=== PATIENT | female | born 1950 | race Caucasian/White ===

== ENCOUNTER 2016-11-09 06:21 | Inpatient (IN) | payer OTHER ==
[2016-10-18 14:25] VITALS: BMI 32.0
--- NOTE | 2016-10-18 15:13 | PAT Medication Instructions ---
Service Date Oct 18, 2016. Current Home Medication List Amlodipine (Norvasc), 10 MG PO QAM Aspirin (Aspirin Ec), 81 MG PO QAM Atorvastatin (Lipitor), 20 MG PO QPM Cyclobenzaprine Hcl (Flexeril), 5 MG PO TID PRN for PRN Etodolac (Etodolac), 1,000 TAB PO QAM Hydrochlorothiazide (Hctz), 25 MG PO QAM Labetalol Hcl (Normodyne), 100 MG PO BID Pantoprazole (Protonix), 40 MG PO BID Polyethylene Glycol 3350 (Miralax), 17 GM PO QAM Sertraline (Zoloft), 100 MG PO QAM Triamcinolone Acet (Triamcinolone Acetonide), 1 APPLN TOP PRN Wheat Dextrin (Benefiber), 1 DOSE PO QAM [Fiber Gummies], 1 TAB PO DAILY Medication Instructions For Your Scheduled Surgery - Check with surgeon for instructions: Etodolac (Etodolac), 1,000 TAB PO QAM - Hold the following medications 24 hours prior to surgery: Triamcinolone Acet (Triamcinolone Acetonide), 1 APPLN TOP PRN - Hold the following medications the morning of surgery: [Fiber Gummies], 1 TAB PO DAILY Wheat Dextrin (Benefiber), 1 DOSE PO QAM Hydrochlorothiazide (Hctz), 25 MG PO QAM Cyclobenzaprine Hcl (Flexeril), 5 MG PO TID PRN for PRN Polyethylene Glycol 3350 (Miralax), 17 GM PO QAM - Take the following medications the morning of surgery with a sip of water: Aspirin (Aspirin Ec), 81 MG PO QAM Labetalol Hcl (Normodyne), 100 MG PO BID Sertraline (Zoloft), 100 MG PO QAM Pantoprazole (Protonix), 40 MG PO BID Amlodipine (Norvasc), 10 MG PO QAM - Take the following medications as scheduled the night before surgery: Labetalol Hcl (Normodyne), 100 MG PO BID Atorvastatin (Lipitor), 20 MG PO QPM Cyclobenzaprine Hcl (Flexeril), 5 MG PO TID PRN for PRN Pantoprazole (Protonix), 40 MG PO BID If you have any questions please call us at [phone] (Senia Sommer PA-C) or [phone] or [phone]
[2016-10-18 15:39] LABS: BASO % 0.3 %; BASO ABS # 0.02 K/uL (0-0.2); COMPLETE YES; EOS % 1.8 %; IG% 0.1 %; LYMPH % 22.8 %; LYMPH ABS # 1.62 K/uL (1.2-3.4); MEAN CELL VOLUME 87.6 fL (80-100); MEAN CORPUSCULAR HEMOGLOBIN 29.9 pg (25-34); MEAN CORPUSCULAR HGB CONC 34.2 g/dl (32-36); MEAN PLATELET VOLUME 10.7 fL (7.4-10.4); MONO % 10.3 %; NEUT % 64.7 %; PLATELET COUNT 270 K/uL (130-400); RED BLOOD COUNT 4.11 M/uL (4.2-5.4); WHITE BLOOD COUNT 7.11 K/uL (4.8-10.8)
[2016-10-18 15:53] LABS: INR 0.9 (0.9-1.1); PARTIAL THROMBOPLASTIN RATIO 1.1
[2016-10-18 15:54] LABS: URINE APPEARANCE CLEAR (CLEAR); URINE COLOR DK YELLOW; URINE NITRITE NEG (NEG); URINE SPECIFIC GRAVITY 1.023 (1.000-1.030); UROBILINOGEN NEG (NEG); ZZUR CULT IF INDIC CLEAN CATCH NO
[2016-10-18 15:56] LABS: URINE BILIRUBIN 3+ (NEG)
[2016-10-18 15:57] LABS: MANUAL MICROSCOPIC REQUIRED? NO; REVIEW REQ? NO
[2016-10-18 16:05] LABS: BUN/CREATININE RATIO 25.1 (10-20); CALCIUM 8.8 mg/dl (8.5-10.1); CREATININE 1.3 mg/dl (0.60-1.20); POTASSIUM 3.1 mmol/L (3.5-5.1)
[2016-10-19 06:23] LABS: ESTIMATED AVERAGE GLUCOSE 111 mg/dl; HA1C FLAG Normal (Normal)
--- NOTE | 2016-11-08 21:33 | HISTORY & PHYSICAL EXAMINATION ---
DATE OF ADMISSION: 11/09/2016 CHIEF COMPLAINT: Chronic left knee pain. HISTORY OF PRESENT ILLNESS: This is a 66-year-old female patient of Dr. Marshall'lorena complaining of chronic left knee pain, longstanding, now progressively getting worse. The patient has been diagnosed with end-stage osteoarthritis. The patient has failed conservative treatment including intraarticular injections, anti-inflammatories and the use of a cane as needed. She has increased pain with weightbearing activities and her pain does interfere with her activities of daily living. PAST MEDICAL HISTORY: Hypertension, anxiety, diet-controlled diabetes mellitus, osteoarthritis, acid reflux, hiatal hernia and obesity. SOCIAL HISTORY: Nonsmoker and nondrinker. FAMILY HISTORY: Noncontributory. REVIEW OF SYSTEMS: The patient complains of chronic left knee pain. Otherwise denies any shortness of breath, chest pain, nausea, vomiting or any other joint complaints. PAST SURGICAL HISTORY: Tonsils and adenoids, paraesophageal hernia, incisional hernia, hernia incarceration, cataract surgery, multiple times Lainez's esophagus and mitral valve prolapse. MEDICATIONS: Atorvastatin 20 mg daily, Flexeril 5 mg t.i.d. p.r.n., hydrochlorothiazide 25 mg daily, aspirin 81 mg daily, Klonopin 0.5 mg three times a day p.r.n. anxiety, Normodyne 100 mg one tablet b.i.d., Lodine 500 mg two tablets daily, Benefiber daily, MiraLax daily, Zoloft 100 mg daily, triamcinolone acetonide 0.1 mg cream apply twice daily for rashes around ears and back topically, Norvasc 10 mg daily, Protonix 40 mg b.i.d., Topamax and fiber gummies daily. ALLERGIES: INCLUDE BENZOIC ACID, CIPROFLOXACIN AND FLAGYL, IODINATED AGENTS, LATEX, LISINOPRIL, LOSARTAN, POTASSIUM, STERI-STRIPS AND WELCHOL. PHYSICAL EXAMINATION: GENERAL: Well-developed, well-nourished 66-year-old female in no acute distress. She is alert, oriented x3 and pleasant. HEENT: Normocephalic, atraumatic. Extraocular motions are intact. Pupils are equal and reactive to light. HEART: Regular rate and rhythm, no murmurs appreciated. LUNGS: Clear. ABDOMEN: Soft, nontender, bowel sounds present. EXTREMITIES: Left knee reveals a varus deformity with medial joint line tenderness. She has limited range of motion of 0-130 degrees. She is stable. She has crepitation with passive range of motion. She has 5/5 strength. NEUROLOGIC: Neurovascularly, she is intact in her left lower extremity. DIAGNOSES: Left knee end-stage osteoarthritis, hypertension, anxiety, diabetes mellitus diet-controlled, osteoarthritis, acid reflux, paraesophageal hernia and obesity. She also has mitral valve prolapse and Lainez's esophagus. PLAN: The patient was advised of her diagnoses. Indications, risks, benefits, and postop course have all been reviewed. The patient wishes to proceed with a left total knee arthroplasty. Necessary consent forms, preoperative testing and clearances will be obtained. FABIOLA
[~2016-11-09] VITALS: Ht 162.6 cm; Wt 83.7 kg
[2016-11-09] VITALS (9 sets, daily range): BP systolic 105–126; BP diastolic 64–77; PULSE 64–82; TEMP 36.4–36.9; O2SAT 91–96; Ht 162.6 cm; Wt 83.7 kg
[~2016-11-09 06:21] MED LIST: ACETAMINOPHEN 500 MG TAB PO SCH; AMLO-114 PO; ASPI81TA28 PO; ATOR-22 PO; CEFAZOLIN 2000 MG/60 ML D5W 60 ML IV SCH; CYCL5TAB PO; CeleBREX 200 MG CAP PO SCH; DEXAMETHASONE 4 MG TAB PO SCH; ETOD500T95 PO; FAMOTIDINE 20 MG TAB PO SCH; FIBER GUMMIES PO; GABAPENTIN 300 MG CAP PO SCH; HYDR25TA4 PO; LACTATED RINGER'S 1000ML 1,000 ML IV SCH; LACTATED RINGER'S 1000ML IV SCH; LBT/100 PO; METOCLOPRAMIDE HCL 10 MG TAB PO SCH; PANT40TA PO; POLY335019 PO; ROPIVACAINE 5MG/ML 30 ML 150 MG, BUPIVACAINE/EPINEPHR 0.5% MPF 30 ML, KETOROLAC TROMETH... INFIL SCH; SERT-234 PO; TRMCR515 TOP; WHEAPOW13 PO
[2016-11-09] MEDS: TRANEXAMIC ACID INJ 1,000 MG in SODIUM CHLORIDE 0.9% 100ML 100 ML IV SCH ×2 (06:30→08:21)
[2016-11-09] MEDS ORDERED: MELO7.5T5 PO (06:54)
--- NOTE | 2016-11-09 07:00 | History & Physical Bridge Note ---
H&P Re-Evaluation Bridge Note: I have examined the patient, reviewed the History & Physical and in the interval since the performance of the History & Physical I have noted the following changes of clinical significance: No changes noted
[2016-11-09] MEDS ORDERED: MIDAZOLAM HCL 1 MG/ML 2ML VIAL ONE (07:14)
[2016-11-09] MEDS ORDERED: FENTANYL CITRATE INJ 50 MCG/1 ML 2 ML VIAL ONE (07:14)
[2016-11-09] MEDS ORDERED: ORTHO JOINT ANESTHETIC ONE (07:21)
[2016-11-09] MEDS ORDERED: POVIDONE-IODINE OP SOLN 30 ML BTL ONE (07:21)
[2016-11-09] MEDS ORDERED: BACITRACIN 50000 UNIT VIAL ONE (07:21)
[2016-11-09] MEDS ORDERED: BUPIVACAINE 0.25% 30 ML VIAL ONE (07:27)
[2016-11-09] MEDS ORDERED: BUPIVACAINE 0.5 % 5 MG/1 ML PF 10ML VIAL ONE (07:27)
[2016-11-09] MEDS ORDERED: LABETALOL HCL IV 5 MG/ML 20ML IV PRN (08:45)
[2016-11-09] MEDS ORDERED: FENTANYL CITRATE INJ 50 MCG/1 ML 2 ML VIAL IV PRN (08:45)
[2016-11-09] MEDS ORDERED: ATROPINE SULFATE 0.1 MG/ML 5ML SYR IV PRN (08:45)
[2016-11-09] MEDS ORDERED: MEPERIDINE HCL 25 MG/ML CARP IV PRN (08:45)
[2016-11-09] MEDS ORDERED: EpHEDrine SULFATE INJ 50 MG/ML AMP IV PRN (08:45)
[2016-11-09] MEDS ORDERED: HYDROmorphone INJ 1 MG/ML SYR IV PRN (08:45)
[2016-11-09] MEDS ORDERED: ONDANSETRON INJ 2 MG/ML 2 ML VIAL IV PRN ×2 (08:45→10:45)
[2016-11-09] MEDS ORDERED: PROPOFOL IV EMULSION 10 MG/ML 20 ML VIAL IV ONE ×2 (09:36→09:53)
--- NOTE | 2016-11-09 10:06 | [facility] Operative Report ---
Operative Report Operative Date Nov 09, 2016. Pre-Operative Diagnosis Left knee end-stage osteoarthritis Post-Operative Diagnosis same Procedure(s) Performed left total knee replacement Surgeon Dr. Arturo Marshall Brushing Operator Surgeon(s) Del Gutierrez PA-C Estimated Blood Loss 5cc Findings grade 4 medial and medial patellofemoral,varus Specimens A. Left knee bone and tissue Drains 2 hemovac Anesthesia spinal, block, orthomix Complication(s) None Disposition Recovery Room / PACU Indications end stage oa I attest to the content of the Intraoperative Record and any orders documented therein. Any exceptions are noted below.
[2016-11-09] MEDS ORDERED: CYCLOBENZAPRINE HCL 5 MG TAB PO PRN (10:45)
[2016-11-09] MEDS ORDERED: ZOLPIDEM TARTRATE 5 MG TAB PO PRN (10:45)
[2016-11-09] MEDS ORDERED: MAGNESIUM HYDROXIDE SUSP 30 ML UDC PO PRN (10:45)
[2016-11-09] MEDS ORDERED: MoRPHine SULFATE 2 MG/ML CARP IV PRN (10:45)
[2016-11-09] MEDS ORDERED: BISACODYL 10 MG SUPP PR PRN (10:45)
[2016-11-09] MEDS ORDERED: DiphenhydrAMINE HCL 50 MG/ML VIAL IV PRN (10:45)
[2016-11-09] MEDS ORDERED: ALUMINUM/MAGNESIUM/SIMETH (MAALOX MAX) 30 ML UDC PO PRN (10:45)
[2016-11-09] MEDS ORDERED: MoRPHine SULFATE 4 MG/ML 1 ML CARP\\VIAL IV PRN (11:00)
[2016-11-09] MEDS ORDERED: MoRPHine SULFATE 10 MG/ML CARP/VIAL IV PRN (11:00)
--- NOTE | 2016-11-09 11:00 | DIAGNOSTIC IMAGING REPORT ---
TWO VIEWS LEFT KNEE CLINICAL HISTORY: Postoperative examination. FINDINGS: AP and crosstable lateral portable views of the left knee are obtained. A left knee arthroplasty is in near anatomic alignment. There has been undersurface remodeling of the patella. No acute fracture is seen. There are expected postoperative changes around the knee including skin clips, a surgical drain, soft tissue edema, and subcutaneous gas. IMPRESSION: Expected postoperative changes status post left knee arthroplasty. No acute fracture is seen. Electronically signed by: Tin Fortune M.D. 11/09/2016 10:58 AM Dictated Date/Time: 11/09/2016 10:58 AM
--- NOTE | 2016-11-09 11:26 | Anesthesiology Progress Note ---
Anesthesia Post Op Note Date & Time Nov 09, 2016 at 11:26 Vital Signs Pain Intensity: 0 Vital Signs Past 12 Hours Date Time Temp Pulse Resp B/P Pulse Ox O2 Delivery O2 Flow Rate FiO2 11/09/16 11:00 71 14 132/62 92 Nasal Cannula 2 11/09/16 10:50 65 14 129/66 93 Nasal Cannula 2 11/09/16 10:40 66 16 119/63 94 Nasal Cannula 2 11/09/16 10:31 36.3 82 16 128/67 96 Room Air 11/09/16 06:55 36.4 70 18 125/76 Room Air Notes Mental Status: alert / awake / arousable, participated in evaluation Pt Amnestic to Procedure: Yes Nausea / Vomiting: adequately controlled Pain: adequately controlled Airway Patency, RR, SpO2: stable & adequate BP & HR: stable & adequate Hydration State: stable & adequate Anesthetic Complications: no major complications apparent
[2016-11-09] MEDS: D5W AND 1/2NSS + 20MEQ KCL 1,000 ML IV SCH ×2 (13:23→22:37)
[2016-11-09] MEDS: FERROUS GLUCONATE 324 MG TAB PO SCH ×2 (14:08→18:06)
[2016-11-09] MEDS: ACETAMINOPHEN 500 MG TAB PO SCH ×2 (14:09→21:45)
[2016-11-09] MEDS: CEFAZOLIN IV 2,000 MG in DEXTROSE 5% 50ML 50 ML IV SCH (15:37)
[2016-11-09] MEDS: OXYCODONE HCL IR 5 MG TAB (IMMEDIATE RELEASE) PO PRN (17:43)
--- NOTE | 2016-11-09 18:15 | Medical Consult ---
Consultation Date of Consultation: Nov 09, 2016. Attending Physician: Arturo Marshall M.D. Reason for Consultation: med mgmt History of Present Illness This is a 66 y/o female with PMHx of HTN, Dyslipidemia and other problems as outlined below who presents POD 0 s/p L TKA performed by Dr. Marshall. Pt is doing well post-operatively. She denies any pain. Pt denies chest pain, SOB, abd pain, N/V, bowel or bladder issues, LE edema and calf pain. Past Medical/Surgical History Medical Problems: (1) Anxiety Status: Chronic (2) Depression Status: Chronic (3) Dyslipidemia Status: Chronic (4) GERD (gastroesophageal reflux disease) Status: Chronic (5) HTN (hypertension) Status: Chronic Surgical Problems: (1) H/O cataract removal with insertion of prosthetic lens Status: Resolved (2) H/O hernia repair Status: Resolved (3) History of cholecystectomy Status: Resolved (4) History of tonsillectomy and adenoidectomy Status: Resolved Social History Smoking Status: Never Smoker Alcohol Use: none Drug Use: none Marital Status: Housing Status: lives with significant other Allergies Coded Allergies: Adhesives (Verified Allergy, Unknown, RASH WITH STERI STRIPS, 11/09/16) Benzoic Acid (Verified Allergy, Unknown, RASH, 11/09/16) Ciprofloxacin (Verified Allergy, Unknown, NAUSEA AND VOMITING, 11/09/16) Colesevelam (Verified Allergy, Unknown, UNKNOWN, 11/09/16) Iodinated Diagnostic Agents (Verified Allergy, Unknown, NAUSEA VOMITING, ) Latex1 -Allergic Contact Dermititis (Verified Allergy, Unknown, RASH, 11/09) Lisinopril (Verified Allergy, Unknown, DIZZY, 11/09/16) Losartan (Verified Allergy, Unknown, COUGH, 11/09/16) Metronidazole (Verified Allergy, Unknown, NAUSEA VOMITING, 11/09/16) Milk (Verified Allergy, Unknown, DIARRHEA, 11/09/16) Home Medications Active Reported Mobic (Meloxicam) 7.5 Mg Tab 7.5 Mg PO DAILY [Fiber Gummies] 1 Tab PO DAILY Protonix (Pantoprazole Sodium) 40 Mg Tab 40 Mg PO BID Norvasc (Amlodipine Besylate) 10 Mg Tab 10 Mg PO QAM Triamcinolone Acetonide (Triamcinolone Acet) 45 Appln/15 Gm Cr 1 Appln TOP PRN 30 Days Zoloft (Sertraline HCl) 100 Mg Tab 100 Mg PO QAM Miralax (Polyethylene Glycol 3350) 1 Pow Pow 17 Gm PO QAM Benefiber (Wheat Dextrin) 1 Pow Pow 1 Dose PO QAM Normodyne (Labetalol Hcl) 100 Mg Tab 100 Mg PO BID Aspirin Ec (Aspirin) 81 Mg Tab 81 Mg PO QAM Hctz (Hydrochlorothiazide) 25 Mg Tab 25 Mg PO QAM Lipitor (Atorvastatin Calcium) 20 Mg Tab 20 Mg PO QPM Flexeril (Cyclobenzaprine Hcl) 5 Mg Tab 5 Mg PO TID PRN PRN Current Inpatient Medications Current Inpatient Medications Medications (Trade) Dose Ordered Sig/Parish Route Start Time Stop Time Status Last Admin Dose Admin Amlodipine Besylate (Norvasc Tab) 10 mg QAM PO 11/10/16 09:00 12/10/16 08:59 Atorvastatin Calcium (Lipitor Tab) 20 mg QPM PO 11/09/16 21:00 12/09/16 20:59 Cyclobenzaprine HCl (Flexeril Tab) 5 mg TID PRN PO 11/09/16 10:45 12/09/16 10:44 Labetalol HCl (Normodyne Tab) 100 mg BID PO 11/09/16 21:00 12/09/16 20:59 Pantoprazole Sodium (Protonix Tab) 40 mg BID PO 11/09/16 21:00 12/09/16 20:59 Sertraline HCl (Zoloft Tab) 100 mg QAM PO 11/10/16 09:00 12/10/16 08:59 Morphine Sulfate 2 mg 2 mg Q4HWA PRN IV 11/09/16 10:45 11/23/16 10:44 Potassium Chloride/Dextrose/ Sod Cl 1,000 ml @ 100 mls/hr Q10H IV 11/09/16 13:00 11/10/16 10:32 11/09/16 13:23 100 MLS/HR Cefazolin Sodium/ Dextrose (Ancef Iv/D5 50ml) 60 ml @ 100 mls/hr Q8H IV 11/09/16 16:00 11/10/16 00:35 11/09/16 15:37 100 MLS/HR Oxycodone HCl (Roxicodone Immediate Rel Tab) 1 TABLET FOR PAIN RATING... Q4H PRN PO 11/09/16 10:45 11/23/16 10:44 11/09/16 17:43 5 MG Oxycodone HCl (Oxycontin Tab) 10 mg Q12 PO 11/09/16 21:00 11/23/16 20:59 Acetaminophen (Tylenol Tab) 1,000 mg Q8H PO 11/09/16 14:00 12/09/16 10:44 11/09/16 14:09 1,000 MG Magnesium Hydroxide (Milk Of Magnesia Susp) 30 ml Q6H PRN PO 11/09/16 10:45 12/09/16 10:44 Bisacodyl (Dulcolax Supp) 10 mg DAILY PRN AR 11/09/16 10:45 12/09/16 10:44 Senna (Senokot Tab) 17.2 mg HS PO 11/09/16 21:00 12/09/16 20:59 Docusate Sodium (coLACE CAP) 100 mg BID PO 11/09/16 21:00 12/09/16 20:59 Diphenhydramine HCl (Benadryl Inj) 25 mg Q8H PRN IV 11/09/16 10:45 12/09/16 10:44 Al Hydrox/Mg Hydrox/Simethicone (Maalox Max Susp) 15 ml Q4H PRN PO 11/09/16 10:45 12/09/16 10:44 Zolpidem Tartrate (Ambien Tab) 5 mg HSZ PRN PO 11/09/16 10:45 12/09/16 10:44 Multivitamins (Multivitamin Tab) 1 tab QAM PO 11/10/16 09:00 12/10/16 08:59 Ondansetron HCl (Zofran Inj) 4 mg Q6H PRN IV 11/09/16 10:45 12/09/16 10:44 Ferrous Gluconate (Ferrous Gluconate Tab) 324 mg TIDM PO 11/09/16 12:30 12/09/16 12:29 11/09/16 14:08 324 MG Aspirin (Ecotrin Tab) 81 mg BID PO 11/09/16 21:00 12/09/16 20:59 Morphine Sulfate (MoRPHine SULFATE INJ) 4 mg Q4HWA PRN IV 11/09/16 11:00 11/23/16 10:59 Morphine Sulfate (MoRPHine SULFATE INJ) 6 mg Q4HWA PRN IV 11/09/16 11:00 11/23/16 10:59 Review of Systems Constitutional: No chills, No fatigue, No fever, No sweats, No weakness Eyes: No worsening of vision ENT: No hearing loss Respiratory: No shortness of breath Cardiovascular: No chest pain Abdomen: No constipation, No diarrhea, No nausea, No pain, No vomiting Musculoskeletal: No calf pain, No swelling Genitourinary - Female: No dysuria Neurologic: No weakness Psychiatric: No depression symptoms Endocrine: No fatigue Hematologic / Lymphatic: No abnormal bleeding/bruising Integumentary: No new/changing skin lesions Physical Exam Date Time Temp Pulse Resp B/P Pulse Ox O2 Delivery O2 Flow Rate FiO2 11/09/16 16:45 Nasal Cannula 2.0 11/09/16 15:07 36.8 69 16 113/71 96 Nasal Cannula 2.0 11/09/16 14:05 36.7 76 16 105/64 95 2.0 11/09/16 13:01 82 16 121/77 11/09/16 12:42 75 16 126/74 11/09/16 12:05 94 Nasal Cannula 2.0 11/09/16 12:05 36.9 78 16 113/69 94 Nasal Cannula 2.0 11/09/16 12:05 94 Nasal Cannula 2.0 11/09/16 11:44 36.8 76 16 125/68 94 Nasal Cannula 2 11/09/16 11:40 73 16 132/71 94 Nasal Cannula 2 11/09/16 11:30 69 16 119/62 92 Nasal Cannula 2 11/09/16 11:20 67 14 128/62 92 Nasal Cannula 2 11/09/16 11:10 70 14 136/73 95 Nasal Cannula 2 11/09/16 11:00 71 14 132/62 92 Nasal Cannula 2 11/09/16 10:50 65 14 129/66 93 Nasal Cannula 2 11/09/16 10:40 66 16 119/63 94 Nasal Cannula 2 11/09/16 10:31 36.3 82 16 128/67 96 Room Air 11/09/16 06:55 36.4 70 18 125/76 Room Air General Appearance: WD/WN, no apparent distress, + pertinent finding (Pt is laying in bed with family/friends at bedside ) Head: normocephalic, atraumatic Eyes: normal inspection ENT: hearing grossly normal Neck: supple Respiratory/Chest: chest non-tender, lungs clear, normal breath sounds, no respiratory distress Cardiovascular: regular rate, rhythm, no edema, no murmur Abdomen/GI: normal bowel sounds, non tender, soft Back: normal inspection Extremities/Musculoskelatal: no calf tenderness, no pedal edema, + pertinent finding (surgical dressing in place over L knee; 1 drain noted containing blood ) Neurologic/Psych: alert, normal mood/affect, oriented x 3 Skin: normal color, warm/dry Laboratory Results Last 24 Hours Test 11/09/16 06:43 Bedside Glucose 121 mg/dl Assessment & Plan L KNEE DJD S/P L TKA -POD 0; surgery performed by Dr. Marshall -post-operative pain well managed -monitor for acute blood loss with daily H&H -pt encouraged to utilize spirometry to prevent post-op infection -PT/OT -activity and wound care orders per ortho protocol -will continue to follow HTN -stable -cont HCTZ, Norvasc and labetalol -monitor DYSLIPIDEMIA -diet-controlled DVT PROPHYLAXIS -per ortho protocol CODE STATUS -FULL CODE status DISPO -discharge eval placed-pt mentions that she may be going to [facility] for rehab -per ortho. Pt seen in collaboration with Dr. Rodriguez. Please see his addendum for further details. Thanks! -Of note: patient will be followed by Dr. Osborn starting tomorrow AM Thank you for this consultation. We will follow the patient with you during their hospital stay. You can reach a member of the [facility] Hospitalist Team 13/03 via pager @ . Attending Addendum Pt was seen and examined. Agreed with Ciera KASPER physical exam, assessment and plan. S/p day#0 LTKA that was performed by Dr. Marshall. Pt is doing fine with no complications. Denies any chest pain, palpitation and sob. will continue monitor h/h. advised pt to use spirometry. Will monitor cbc and BMP. PT/OT eval and DVT px once bleeding stable. Thank you for the consult We will continue follow the patient with you during the hospital course. Anam Rodriguez MD
[2016-11-09] MEDS: DOCUSATE SODIUM 100 MG CAP PO SCH (20:43)
[2016-11-09] MEDS: PANTOprazole SOD 40 MG TAB PO SCH (20:43)
[2016-11-09] MEDS: ASPIRIN 81 MG ECTAB PO SCH (20:44)
[2016-11-09] MEDS: LABETALOL HCL 100 MG TAB PO SCH (20:44)
[2016-11-09] MEDS: SENNA 8.6 MG TAB PO SCH (20:53)
[2016-11-09] MEDS: OXYCODONE HCL 10 MG TABCR (OXYCONTIN) PO SCH (20:53)
[2016-11-09] MEDS: ATORVASTATIN 20 MG TAB PO SCH (20:53)
--- NOTE | 2016-11-09 23:31 | OPERATIVE REPORT ---
DATE OF OPERATION: 11/09/2016 INDICATION FOR PROCEDURE: The patient is a 66-year-old female who presents with progressive pain and disability due to osteoarthritis of her left knee. She has a left knee with varus knee, bone on bone medial compartment and advanced patellofemoral DJD as well. PREOPERATIVE DIAGNOSIS: End-stage osteoarthritis of the left knee. POSTOPERATIVE DIAGNOSIS: Same. PROCEDURE: Left total knee arthroplasty. SURGEON: Dr. Marshall. KEYMODULE ASSEMBLY SUPERVISOR: JOZEF Jackson. ANESTHESIA: Spinal sedation, regional block and Orthomix. OPERATIVE PROCEDURE: The patient taken to the operating room, anesthetized under anesthesia as dictated. Pneumatic tourniquet was placed to left upper thigh. Left lower extremity was prepped and draped in sterile fashion. Exam demonstrates she had a varus knee with no flexion contracture, 0 through 125 degrees range of motion. After knee was sterilely prepped and draped with ChloraPrep, her leg was elevated, exsanguinated with Esmarch bandage. Pneumatic tourniquet was raised to 300 mmHg. Anterior incision made across the left knee. Skin was incised sharply. Subcutaneous tissues were divided down to the prepatellar bursa. She had a chronically thickened prepatellar bursa consistent with chronic bursitis from tibial tubercle over the anterior patella. I did resect the prepatellar bursa. Incision was made through medial retinaculum and extended up in the mid third of the quadriceps tendon and extended down to the medial tibial tubercle. Intra-articular findings demonstrated that she had a varus knee, grade 4 [id number] medial compartment. She had grade 4 trochlear groove and medial facet patella arthritis toward the medial femoral condyle aspect of the trochlear groove. She had tricompartmental osteophytes. The Lin \T\ Nephew Journey 2.0 total knee arthroplasty system was used using [employer] MRI templating. She was sized for a 5 femur, 3 tibia. To expose the knee, I excised the infrapatellar fat pad. We had to do some releases around the proximal medial tibial plateau to balance the ligaments. We did not have to do any releases laterally. The cruciate ligaments were resected and the meniscal remnants were resected. The custom femoral cutting block was pinned in position and the drill holes were made and then the distal femoral cut was made. The 5-in-1 cutting block was then placed and anterior, posterior, and chamfer cuts were made. All osteophytes removed the femur. The patella was addressed with subperiosteal peel lateral release. Patella width was measured and width was reproduced using a freehand cut technique and a 35 patella size was appropriate. Drill holes for the component were made and the excess lateral facet was beveled off to prevent any impingement. With the tibia exposed, we placed on a custom tibial cutting block but block did not take off enough proximal tibia. So we went ahead and used an external tibial cutting guide to make a perpendicular cut to the long axis of the tibia and match some of the patient's slope appropriately. After this cut was made, we assessed ligaments balanced in extension and flexion. We had to do some posteromedial release to get balanced flexion and extension gaps. Then the tibia was sized for a 3 component. With the trial externally rotated in line with the tibial tubercle, it was pinned in position and then the punch for the stem was used. Then the 5 femoral trial was inserted and centered and the notch cutting devices were used. The collet was placed and a 12 poly insert gave balanced ligaments through full range of motion and patella tracked centrally. The trials were then all removed. The anesthetic cocktail was injected per protocol. The knee was copiously irrigated with pulsatile lavage antibiotic solution and bacitracin. The final components were cemented with Simplex G cement. Final components were the 5 Oxinium posterior stabilized left Lin \T\ Nephew Journey 2.0 femur, the 3 tibial baseplate, the 12 mm posterior stabilized poly insert and 35 patella. While the cement cured, Betadine soak was placed per protocol. Then after further copious irrigation with antibiotic solution with bacitracin, 2 drains were brought out laterally. Quadriceps tendon and medial retinaculum were closed with interrupted [id number] #1 Vicryl sutures. Subcutaneous tissues closed with interrupted 2-0 Polysorb. Skin was closed with katie. Sterile dressings applied and the patient tolerated the procedure well. JOZEF Jackson was my assistant store manager operations and he functioned as assistant store manager operations through the entire procedure. He assisted in patient leg positioning, soft tissue retraction, instrument management and performed the fascial, subcutaneous and skin closure and will participate in postoperative care of the patient. I attest to the content of the Intraoperative Record and any orders documented therein. Any exceptio ns are noted below.
[2016-11-10] MEDS: CEFAZOLIN IV 2,000 MG in DEXTROSE 5% 50ML 50 ML IV SCH (00:36)
[2016-11-10] MEDS: OXYCODONE HCL IR 5 MG TAB (IMMEDIATE RELEASE) PO PRN ×5 (00:47→23:39)
[2016-11-10 03:57] VITALS: BP 107/62; PULSE 71; TEMP 36.6; O2SAT 95
[2016-11-10 05:38] LABS: HEMATOCRIT 31.1 % (37-47); MEAN CELL VOLUME 88.6 fL (80-100); MEAN CORPUSCULAR HEMOGLOBIN 29.3 pg (25-34); MEAN CORPUSCULAR HGB CONC 33.1 g/dl (32-36); PLATELET COUNT 252 K/uL (130-400); RED BLOOD COUNT 3.51 M/uL (4.2-5.4); WHITE BLOOD COUNT 12.72 K/uL (4.8-10.8)
[2016-11-10] MEDS: ACETAMINOPHEN 500 MG TAB PO SCH ×3 (05:52→21:44)
[2016-11-10 06:10] LABS: BUN/CREATININE RATIO 19.6 (10-20); CREATININE 0.92 mg/dl (0.60-1.20); POTASSIUM 4.3 mmol/L (3.5-5.1)
[2016-11-10 07:21] VITALS: BP 117/68; PULSE 64; TEMP 36.6; O2SAT 96
[2016-11-10] MEDS: LABETALOL HCL 100 MG TAB PO SCH ×2 (08:25→21:42)
[2016-11-10] MEDS: ASPIRIN 81 MG ECTAB PO SCH ×2 (08:25→21:39)
[2016-11-10] MEDS: AMLODIPINE BESYLATE 5 MG TAB PO SCH (08:26)
[2016-11-10] MEDS: MULTIVITAMIN TAB PO SCH (08:26)
[2016-11-10] MEDS: PANTOprazole SOD 40 MG TAB PO SCH ×2 (08:26→21:43)
[2016-11-10] MEDS: FERROUS GLUCONATE 324 MG TAB PO SCH ×3 (08:26→19:18)
[2016-11-10] MEDS: DOCUSATE SODIUM 100 MG CAP PO SCH ×2 (08:26→21:39)
[2016-11-10] MEDS: SERTRALINE HCL 100 MG TAB PO SCH (08:27)
--- NOTE | 2016-11-10 08:28 | Orthopedic Progress Note ---
Orthopedic Progress Note Date of Service Nov 10, 2016. Subjective Post OP Day: 1 Reports: feeling well, pain controlled w PO medications, Denies: SOB, calf pain , chest pain, complaints, light headedness, nausea / vomiting Objective calves soft nontender, N/V intact, capillary refill less than 2 sec., dressing C /D/I, A&O x3, toes mobile Date Time Temp Pulse Resp B/P Pulse Ox O2 Delivery O2 Flow Rate FiO2 11/10/16 08:23 Room Air 11/10/16 07:21 36.6 64 15 117/68 96 Room Air 11/10/16 03:57 36.6 71 16 107/62 95 Room Air 11/10/16 00:43 Room Air 11/09/16 23:53 36.7 66 16 119/67 91 Room Air 11/09/16 20:45 64 108/68 11/09/16 19:22 36.8 76 16 109/68 93 Room Air 11/09/16 16:45 Nasal Cannula 2.0 11/09/16 15:07 36.8 69 16 113/71 96 Nasal Cannula 2.0 11/09/16 14:05 36.7 76 16 105/64 95 2.0 11/09/16 13:01 82 16 121/77 11/09/16 12:42 75 16 126/74 11/09/16 12:05 94 Nasal Cannula 2.0 11/09/16 12:05 36.9 78 16 113/69 94 Nasal Cannula 2.0 11/09/16 12:05 94 Nasal Cannula 2.0 11/09/16 11:44 36.8 76 16 125/68 94 Nasal Cannula 2 11/09/16 11:40 73 16 132/71 94 Nasal Cannula 2 11/09/16 11:30 69 16 119/62 92 Nasal Cannula 2 11/09/16 11:20 67 14 128/62 92 Nasal Cannula 2 11/09/16 11:10 70 14 136/73 95 Nasal Cannula 2 11/09/16 11:00 71 14 132/62 92 Nasal Cannula 2 11/09/16 10:50 65 14 129/66 93 Nasal Cannula 2 11/09/16 10:40 66 16 119/63 94 Nasal Cannula 2 11/09/16 10:31 36.3 82 16 128/67 96 Room Air Laboratory Results 24 Hours: Test 11/10/16 05:15 Hematocrit 31.1 % Hemoglobin 10.3 g/dL Assessment & Plan Assessment: POD #1, LEFT TKA Plan: PT/ OT DVT proph- ASA D/C planning- HS [facility] medicine input Inhouse Planning Pain Management: Oxycontin, Morphine, PO Tylenol, Oxy IR DVT Prophylaxis: TEDs, SCDs, ASA Discharge Planning Discharge Planning: rehab hospital Pain Management: Oxycontin, PO Tylenol, Oxy IR DVT Prophylaxis: TEDs, ASA Therapy: Physical Therapy, Occupational Therapy
[2016-11-10] MEDS: OXYCODONE HCL 10 MG TABCR (OXYCONTIN) PO SCH ×2 (08:30→21:47)
[2016-11-10] MEDS ORDERED: NURSING VERBAL MED ORDER ONE (09:00)
[2016-11-10 12:51] VITALS: BP 133/74; PULSE 70; TEMP 36.6; O2SAT 97
[2016-11-10 15:05] VITALS: BP 105/63; PULSE 71; TEMP 36.5; O2SAT 93
--- NOTE | 2016-11-10 15:36 | Progress Note ---
Medicine Progress Note Date & Time of Visit: Nov 10, 2016 at 15:17. Subjective Pain well-controlled on current medications Denies nausea Tolerating PO On bowel regimen No other symptoms are present at this time. Objective Last 8 Hrs Date Time Temp Pulse Resp B/P Pulse Ox O2 Delivery O2 Flow Rate FiO2 11/10/16 15:05 36.5 71 18 105/63 93 Room Air 11/10/16 12:51 36.6 70 18 133/74 97 Room Air 11/10/16 08:23 Room Air 11/10/16 07:21 36.6 64 15 117/68 96 Room Air Physical Exam: GEN: WNWD, in no acute distress, alert and appropriate HEENT: NC/AT, normal sclerae CARDIO: reg rate, S1/2 heard without m/g/r LUNGS: CTA bilaterally, no crackles, rales or wheezes, good diaphragmatic excursion ABD: soft, non-tender, non-distended, no rebound or guarding EXTREMITY: RP and DP palpable 2+ on Left leg, extremities are warm and well- perfused, Left leg/knee wrapped in ALCIDES wrap--difficult to appreciate any swelling as a result. NEURO: no gross focal deficits SKIN: warm and dry Laboratory Results: 11/10/16 05:15 11/10/16 05:15 Test 10/18/16 00:00 10/18/16 15:14 11/09/16 06:43 11/10/16 05:15 Urine Color DK YELLOW Urine Appearance CLEAR (CLEAR) Urine pH 5.0 (4.5-7.5) Urine Specific [place] 1.023 (1.000-1.030) Urine Protein NEG (NEG) Urine Glucose (UA) NEG (NEG) Urine Ketones TRACE (NEG) Urine Occult Blood NEG (NEG) Urine Nitrite NEG (NEG) Urine Bilirubin 3+ (NEG) Urine Urobilinogen NEG (NEG) Urine Leukocyte Esterase TRACE (NEG) Urine WBC (Auto) 1-5 /hpf (0-5) Urine RBC (Auto) 0-4 /hpf (0-4) Urine Hyaline Casts (Auto) 5-10 /lpf (0-5) Urine Epithelial Cells (Auto) 10-20 /lpf (0-5) Urine Bacteria (Auto) NEG (NEG) Immature Granulocyte % (Auto) 0.1 % White Blood Count 7.11 K/uL (4.8-10.8) Red Blood Count 4.11 M/uL (4.2-5.4) 3.51 M/uL (4.2-5.4) Hemoglobin 12.3 g/dL (12.0-16.0) Hematocrit 36.0 % (37-47) Mean Corpuscular Volume 87.6 fL (80-100) 88.6 fL (80-100) Mean Corpuscular Hemoglobin 29.9 pg (25-34) 29.3 pg (25-34) Mean Corpuscular Hemoglobin Concent 34.2 g/dl (32-36) 33.1 g/dl (32-36) Platelet Count 270 K/uL (130-400) Mean Platelet Volume 10.7 fL (7.4-10.4) 11.0 fL (7.4-10.4) Neutrophils (%) (Auto) 64.7 % Lymphocytes (%) (Auto) 22.8 % Monocytes (%) (Auto) 10.3 % Eosinophils (%) (Auto) 1.8 % Basophils (%) (Auto) 0.3 % Neutrophils # (Auto) 4.60 K/uL (1.4-6.5) Lymphocytes # (Auto) 1.62 K/uL (1.2-3.4) Monocytes # (Auto) 0.73 K/uL (0.11-0.59) Eosinophils # (Auto) 0.13 K/uL (0-0.5) Basophils # (Auto) 0.02 K/uL (0-0.2) Immature Granulocyte # (Auto) 0.01 K/uL (0.00-0.02) Prothrombin Time 10.0 SECONDS (9.0-12.0) Prothromb Time International Ratio 0.9 (0.9-1.1) Activated Partial Thromboplast Time 27.3 SECONDS (21.0-31.0) Partial Thromboplastin Ratio 1.1 Estimated Average Glucose 111 mg/dl Hemoglobin A1c 5.5 % (4.5-5.6) Albumin 3.7 gm/dl (3.4-5.0) Bedside Glucose 121 mg/dl (70-90) RDW Standard Deviation 42.6 fL (36.4-46.3) RDW Coefficient of Variation 13.2 % (11.5-14.5) Anion Gap 6.0 mmol/L (3-11) Est Creatinine Clear Calc Drug Dose 63.0 ml/min Estimated GFR () 75.2 Estimated GFR (Non- 64.9 BUN/Creatinine Ratio 19.6 (10-20) Calcium Level 8.0 mg/dl (8.5-10.1) Last 24 Hours Test 11/10/16 05:15 White Blood Count 12.72 K/uL Red Blood Count 3.51 M/uL Hemoglobin 10.3 g/dL Hematocrit 31.1 % Mean Corpuscular Volume 88.6 fL Mean Corpuscular Hemoglobin 29.3 pg Mean Corpuscular Hemoglobin Concent 33.1 g/dl RDW Standard Deviation 42.6 fL RDW Coefficient of Variation 13.2 % Platelet Count 252 K/uL Mean Platelet Volume 11.0 fL Sodium Level 143 mmol/L Potassium Level 4.3 mmol/L Chloride Level 111 mmol/L Carbon Dioxide Level 26 mmol/L Anion Gap 6.0 mmol/L Blood Urea Nitrogen 18 mg/dl Creatinine 0.92 mg/dl Est Creatinine Clear Calc Drug Dose 63.0 ml/min Estimated GFR () 75.2 Estimated GFR (Non- 64.9 BUN/Creatinine Ratio 19.6 Random Glucose 134 mg/dl Calcium Level 8.0 mg/dl Diagnostic Imaging: TWO VIEWS LEFT KNEE CLINICAL HISTORY: Postoperative examination. FINDINGS: AP and crosstable lateral portable views of the left knee are obtained. A left knee arthroplasty is in near anatomic alignment. There has been undersurface remodeling of the patella. No acute fracture is seen. There are expected postoperative changes around the knee including skin clips, a surgical drain, soft tissue edema, and subcutaneous gas. IMPRESSION: Expected postoperative changes status post left knee arthroplasty. No acute fracture is seen. Assessment & Plan L KNEE DJD S/P L TKA -POD 1; surgery performed by Dr. Marshall -post-operative pain well managed -monitor for acute blood loss with daily H&H, currently stable -pt encouraged to utilize spirometry to prevent post-op infection -PT/OT per Ortho -activity and wound care orders per ortho protocol -will continue to follow while in the hospital HTN -stable -cont Norvasc and labetalol--HCTZ held perioperatively Depression: stable, cont Zoloft 100mg PO QAM GERD: cont Protonix 40 mg BID DYSLIPIDEMIA -diet-controlled DVT PROPHYLAXIS ASA 81mg BID per ortho protocol CODE STATUS -FULL CODE Dispo-anticipate poss d/c to rehab tomorrow. Thank you for this consultation. We will follow the patient with you during their hospital stay. You can reach a member of the [facility] Hospitalist Team 13/03 via pager @ . You can reach me via cell @ [phone]. Nneka Osborn, [facility] Hospitalist Current Inpatient Medications: Current Inpatient Medications Medications (Trade) Dose Ordered Sig/Parish Route Start Time Stop Time Status Last Admin Dose Admin Amlodipine Besylate (Norvasc Tab) 10 mg QAM PO 11/10/16 09:00 12/10/16 08:59 11/10/16 08:26 10 MG Atorvastatin Calcium (Lipitor Tab) 20 mg QPM PO 11/09/16 21:00 12/09/16 20:59 11/09/16 20:53 20 MG Cyclobenzaprine HCl (Flexeril Tab) 5 mg TID PRN PO 11/09/16 10:45 12/09/16 10:44 Labetalol HCl (Normodyne Tab) 100 mg BID PO 11/09/16 21:00 12/09/16 20:59 11/10/16 08:25 100 MG Pantoprazole Sodium (Protonix Tab) 40 mg BID PO 11/09/16 21:00 12/09/16 20:59 11/10/16 08:26 40 MG Sertraline HCl (Zoloft Tab) 100 mg QAM PO 11/10/16 09:00 12/10/16 08:59 11/10/16 08:27 100 MG Morphine Sulfate (MoRPHine SULFATE INJ) 2 mg Q4HWA PRN IV 11/09/16 10:45 11/23/16 10:44 11/09/16 18:42 2 MG Oxycodone HCl (Roxicodone Immediate Rel Tab) 1 TABLET FOR PAIN RATING... Q4H PRN PO 11/09/16 10:45 11/23/16 10:44 11/10/16 12:29 10 MG Oxycodone HCl (Oxycontin Tab) 10 mg Q12 PO 11/09/16 21:00 11/23/16 20:59 11/10/16 08:30 10 MG Acetaminophen (Tylenol Tab) 1,000 mg Q8H PO 11/09/16 14:00 12/09/16 10:44 11/10/16 13:46 1,000 MG Magnesium Hydroxide (Milk Of Magnesia Susp) 30 ml Q6H PRN PO 11/09/16 10:45 12/09/16 10:44 Bisacodyl (Dulcolax Supp) 10 mg DAILY PRN ME 11/09/16 10:45 12/09/16 10:44 Senna (Senokot Tab) 17.2 mg HS PO 11/09/16 21:00 12/09/16 20:59 Docusate Sodium (coLACE CAP) 100 mg BID PO 11/09/16 21:00 12/09/16 20:59 11/10/16 08:26 100 MG Diphenhydramine HCl (Benadryl Inj) 25 mg Q8H PRN IV 11/09/16 10:45 12/09/16 10:44 Al Hydrox/Mg Hydrox/Simethicone (Maalox Max Susp) 15 ml Q4H PRN PO 11/09/16 10:45 12/09/16 10:44 Zolpidem Tartrate (Ambien Tab) 5 mg HSZ PRN PO 11/09/16 10:45 12/09/16 10:44 Multivitamins (Multivitamin Tab) 1 tab QAM PO 11/10/16 09:00 12/10/16 08:59 11/10/16 08:26 1 TAB Ondansetron HCl (Zofran Inj) 4 mg Q6H PRN IV 11/09/16 10:45 12/09/16 10:44 Ferrous Gluconate (Ferrous Gluconate Tab) 324 mg TIDM PO 11/09/16 12:30 12/09/16 12:29 11/10/16 12:29 324 MG Aspirin (Ecotrin Tab) 81 mg BID PO 11/09/16 21:00 12/09/16 20:59 11/10/16 08:25 81 MG Morphine Sulfate (MoRPHine SULFATE INJ) 4 mg Q4HWA PRN IV 11/09/16 11:00 11/23/16 10:59 Morphine Sulfate (MoRPHine SULFATE INJ) 6 mg Q4HWA PRN IV 11/09/16 11:00 11/23/16 10:59
[2016-11-10] MEDS: ATORVASTATIN 20 MG TAB PO SCH (21:40)
[2016-11-10 21:42] VITALS: BP 117/67; PULSE 62
[2016-11-10] MEDS: SENNA 8.6 MG TAB PO SCH (21:44)
[2016-11-10 23:27] VITALS: BP 129/72; PULSE 64; TEMP 36.7; O2SAT 93
[2016-11-11] MEDS: OXYCODONE HCL IR 5 MG TAB (IMMEDIATE RELEASE) PO PRN ×2 (04:28→13:56)
[2016-11-11] MEDS: ACETAMINOPHEN 500 MG TAB PO SCH ×2 (05:32→13:56)
[2016-11-11 06:10] LABS: HEMATOCRIT 29.8 % (37-47); MEAN CELL VOLUME 90.6 fL (80-100); MEAN CORPUSCULAR HEMOGLOBIN 29.8 pg (25-34); MEAN CORPUSCULAR HGB CONC 32.9 g/dl (32-36); MEAN PLATELET VOLUME 11.2 fL (7.4-10.4); PLATELET COUNT 224 K/uL (130-400); RED BLOOD COUNT 3.29 M/uL (4.2-5.4)
[2016-11-11 06:14] VITALS: BP 127/67; PULSE 71; TEMP 36.7; O2SAT 94
[2016-11-11 06:46] LABS: BUN/CREATININE RATIO 23.2 (10-20); CALCIUM 8.1 mg/dl (8.5-10.1); CREATININE 0.93 mg/dl (0.60-1.20); POTASSIUM 4.1 mmol/L (3.5-5.1)
[2016-11-11] MEDS ORDERED: NURSING VERBAL MED ORDER ONE (08:15)
[2016-11-11] MEDS ORDERED: LORAZEPAM INJ 0.5 MG in SYRINGE 0.75 ML IV ONE (08:30)
--- NOTE | 2016-11-11 08:39 | Orthopedic Progress Note ---
Orthopedic Progress Note Date of Service Nov 11, 2016. Subjective Post OP Day: 2 Reports: feeling well, pain controlled w PO medications, Denies: SOB, calf pain , chest pain, complaints, light headedness, nausea / vomiting Additional Notes: Nursing had issues w getting drain out, patient given morphine, after several attempts, Dr. Marshall was able to pull the drain successfully observing all 7 holes that were placed. Objective calves soft nontender, N/V intact, capillary refill less than 2 sec., incision C /D/I, A&O x3, toes mobile Date Time Temp Pulse Resp B/P Pulse Ox O2 Delivery O2 Flow Rate FiO2 11/11/16 06:14 36.7 71 16 127/67 94 Room Air 11/10/16 23:35 Room Air 11/10/16 23:27 36.7 64 16 129/72 93 Room Air 11/10/16 21:42 62 117/67 11/10/16 16:45 Room Air 11/10/16 15:05 36.5 71 18 105/63 93 Room Air 11/10/16 12:51 36.6 70 18 133/74 97 Room Air Laboratory Results 24 Hours: Test 11/11/16 05:27 Hematocrit 29.8 % Hemoglobin 9.8 g/dL Assessment & Plan Assessment: POD #2, LEFT TKA Plan: PT/ OT DVT proph- ASA D/C planning- HS today Appreciate medicine input Inhouse Planning Pain Management: Oxycontin, Morphine, PO Tylenol, Oxy IR DVT Prophylaxis: TEDs, SCDs, ASA Discharge Planning Discharge Planning: rehab hospital Pain Management: Oxycontin, PO Tylenol, Oxy IR DVT Prophylaxis: TEDs, ASA Therapy: Physical Therapy, Occupational Therapy
[2016-11-11 08:41] VITALS: BP 148/80; PULSE 64; TEMP 36.5; O2SAT 91
[2016-11-11] MEDS ORDERED: PANT40TA PO (08:43)
[2016-11-11] MEDS ORDERED: LBT/100 PO (08:43)
[2016-11-11] MEDS ORDERED: HYDR25TA4 PO (08:43)
[2016-11-11] MEDS ORDERED: OXYSR10 PO (08:43)
[2016-11-11] MEDS ORDERED: ASPEC81 PO (08:43)
[2016-11-11] MEDS ORDERED: CYCL5TAB PO (08:43)
[2016-11-11] MEDS ORDERED: ACET-1138 PO (08:43)
[2016-11-11] MEDS ORDERED: AMB5 PO (08:43)
[2016-11-11] MEDS ORDERED: WHEAPOW13 PO (08:43)
[2016-11-11] MEDS ORDERED: RXC5 PO (08:43)
[2016-11-11] MEDS ORDERED: FIBER GUMMIES PO (08:43)
[2016-11-11] MEDS ORDERED: FRRG PO (08:43)
[2016-11-11] MEDS ORDERED: ATOR-22 PO (08:43)
[2016-11-11] MEDS ORDERED: TRMCR515 TOP (08:43)
[2016-11-11] MEDS ORDERED: POLY335019 PO (08:43)
[2016-11-11] MEDS ORDERED: AMLO-114 PO (08:43)
[2016-11-11] MEDS ORDERED: SERT-234 PO (08:43)
--- NOTE | 2016-11-11 08:45 | Discharge Instructions ---
Discharge Instructions Date of Service Nov 11, 2016. Admission Reason for Admission: Left Knee Degenerative Joint Disease Discharge Discharge Diagnosis / Problem: Left TKA Discharge Goals Goal(s): Improve function Activity Recommendations Activity Level: Assistance Required . Additional Information Patient informed of condition: Yes Advance Directives: Yes DNR: No Level of Care: Acute Rehab Communicable Disease: No Prognosis: Improving Mortensen Catheter: No Instructions / Follow-Up Instructions / Follow-Up ACTIVITY RECOMMENDATIONS: SELF CARE INSTRUCTIONS AFTER TOTAL KNEE REPLACEMENT A. You may need to continue a physical therapy program after discharge from the hospital. There are several options available to you. Your doctor will assist you in selecting the best one for you. 1. An out-patient facility 2 to 3 times a week for therapy or home therapy. 2. Continue working on all exercises taught to you in the hospital. Your goals should be to increase bending of your knee to 90 degrees and beyond and to fully straighten your knee. B. You may progress at your own pace from walking with a walker or crutches to a cane; then to no assistive devices. C. Make walking a part of your daily routine. Be up as much as comfortable with rest periods throughout the day. Rest with leg elevation is very important. Use the ice wrap frequently for the first 3-4 weeks. D. There are no restrictions on activities. You may ride in a car, shop, participate in contour sander and all social activities. E. Wear the long elastic stockings (ANDREW hose) 20 hours a day for 2 weeks after surgery. They can be removed several times a day for laundering and for a bath. F. You may shower, no tub baths until cleared by your doctor. SPECIAL CARE INSTRUCTIONS: VERY IMPORTANT TO READ AND REVIEW A. There are a few signs you need to watch for after you are home. Call [facility] [place] if you notice any of the followin. Increased severe knee pain. Some pain is expected especially when you exercise. 2. Increased swelling in your leg or knee; pain or swelling of the calf muscle in either lower leg. 3. Any fluid drainage from the incision. 4. Shortness of breath or chest pain. B. Please call [facility] at if you have any concerns or questions about your operation or recovery. The doctor or his nurse will return your call promptly. C. You must take antibiotics before dental work, bladder, bowel or other surgery. Your doctor will provide you with a permanent care to carry describing this precaution. IMPORTANT: * REMEMBER TO TAKE ASPIRIN, 81 MG, TWICE DAILY FOR 4 WEEKS UNLESS OTHERWISE DIRECTED. THIS IS YOUR BLOOD THINNER. * HIGH RISK PATIENTS MAY BE PRESCRIBED A STRONGER BLOOD THINNER. THIS WILL BE PROVIDED AT DISCHARGE. * CALL IF INCREASED PAIN, REDNESS, DRAINAGE OR FEVER GREATER THAT 101. * WEAR ANDREW HOSE 20 HOURS PER DAY FOR 2 WEEKS. * YOU MAY HAVE A LARGE BAND-AID LIKE DRESSING (SILVERON). THIS WILL REMAIN ON YOUR INCISION FOR 7 DAYS, THEN CAN BE REMOVED. IF INCISION IS LEAKING THROUGH DRESSING, CALL THE OFFICE . FOLLOW UP VISIT: If appointment is not already scheduled: Please call [facility] [place] to make a follow-up appointment for 2 weeks after your surgery at . Current Hospital Diet Patient's current hospital diet: Regular Diet Discharge Diet Recommended Diet: Regular Diet Procedures Procedures Performed: Left total knee arthroplasty Pending Studies Studies pending at discharge: no Laboratory Results Hemoglobin A1c Test 10/18/16 15:14 Range/Units Estimated Average Glucose 111 mg/dl Hemoglobin A1c 5.5 4.5-5.6 % Medical Emergencies . Who to Call and When: Medical Emergencies: If at any time you feel your situation is an emergency, please call 911 immediately. . Non-Emergent Contact Non-Emergency issues call your: Primary Care Provider . . "Provider Documentation" section prepared by Rj Dumas. Core Measure Problem Core Measures: VTE VTE Core Measures Date of VTE Diagnosis: Nov 11, 2016 Time of VTE Diagnosis: 08:45 Reason no anticoag overlap I/P: Treatment provided - N/A Reason no anticoag overlap @DC: Treatment provided - N/A [place] Drug Monitoring Program Search Results: patient reviewed within database, no issues identified
[2016-11-11] MEDS: FERROUS GLUCONATE 324 MG TAB PO SCH ×2 (09:11→13:00)
[2016-11-11] MEDS: MULTIVITAMIN TAB PO SCH (09:11)
[2016-11-11] MEDS: AMLODIPINE BESYLATE 5 MG TAB PO SCH (09:11)
[2016-11-11] MEDS: SERTRALINE HCL 100 MG TAB PO SCH (09:11)
[2016-11-11] MEDS: PANTOprazole SOD 40 MG TAB PO SCH (09:11)
[2016-11-11] MEDS: DOCUSATE SODIUM 100 MG CAP PO SCH (09:11)
[2016-11-11] MEDS: LABETALOL HCL 100 MG TAB PO SCH (09:12)
[2016-11-11] MEDS: ASPIRIN 81 MG ECTAB PO SCH (09:12)
[2016-11-11] MEDS: OXYCODONE HCL 10 MG TABCR (OXYCONTIN) PO SCH (09:15)
[2016-11-11 11:39] VITALS: BP 138/80; PULSE 68; TEMP 36.5; O2SAT 94
[2016-11-11 11:51] VITALS: O2SAT 96
[2016-11-11 12:25] VITALS: BP 138/80; PULSE 68; TEMP 36.5; O2SAT 96
--- NOTE | 2016-11-14 17:56 | DISCHARGE SUMMARY ---
DISCHARGE DIAGNOSIS: Degenerative joint disease, left knee. SECONDARY DIAGNOSES: Hypertension, anxiety, diet-controlled diabetes mellitus, osteoarthritis, gastroesophageal reflux disease, hiatal hernia and obesity. CONSULTS: Ciera Back PA-C/Dr. Rodriguez. COMPLICATIONS: None. PROCEDURE: Left total knee arthroplasty performed by Dr. Marshall on 11/09/2016. BRIEF HISTORY: As dictated in the history and physical. HOSPITAL SUMMARY: The patient was admitted on the above date and had the above-noted surgery performed which she tolerated well. On the first postoperative day, patient was feeling well and pain was controlled and she had no complaints. Calves were soft, nontender, neurovascularly intact. Dressings clean, dry and intact. Toes were mobile. Vital signs were stable. She was afebrile and hemoglobin was 10.3. She was started on physical therapy protocol, continued on DVT prophylaxis, pain management and medical management per hospitalist service. By her second postoperative day, she was continuing to feel well, pain was controlled and she had no complaints. Nursing had issues with getting one of the drains out of the patient's knee and several attempts were made by myself and by Rj Dumas, however Dr. Marshall was then able to successfully remove the drain without any problems and the drain was intact. Calves were soft and nontender, neurovascularly intact. Incision was clean, dry and intact. Toes were mobile. Hemoglobin was 9.8 and she was continued on her PT protocol, was remaining stable, progressing in physical therapy and it was felt that she could be discharged to [facility] for further physical therapy and care. For further review, please see chart. LAB AND X-RAY DATA: As per chart. DISCHARGE INSTRUCTIONS: The patient was discharged to [facility] on 11/11/2016. ACTIVITY LEVEL: Assistance required. Weightbearing as tolerated in right lower extremity. Follow TKA instruction sheets and special care instructions as noted. The patient to have a regular diet. The patient to have PT and OT protocols per TKA protocol and follow up with Dr. Marshall in 2 weeks. The patient to call for appointment if one has not been made for you. DISCHARGE MEDICATIONS: Acetaminophen 1000 mg p.o. q. 8 hours, aspirin 81 mg p.o. b.i.d., ferrous gluconate 324 mg p.o. t.i.d., OxyContin 10 mg p.o. q. 12 hours, oxycodone 5-10 mg p.o. q. 4 hours p.r.n., zolpidem 5 mg p.o. at bedtime p.r.n. Resume home meds as listed. Stop taking the normal aspirin dosage that you are taking at home and stop taking meloxicam.
== END 2016-11-11 14:06 | DRG 470 ==
LOC: ENRESERVTM → ENRESERVDT → C.ACU 06:21 → C.3E 12:13
PROVIDERS: ADMIT Orthopaedic Surgery Sports Medicine; ATTEND Orthopaedic Surgery Sports Medicine
PROC: 0SRD0J9 Replacement of Left Knee Joint with Synthetic Substitute, Cemented, Open Approach (ICD-10-PCS; principal; 2016-11-09 08:30)
DX: M17.12 Unilateral primary osteoarthritis, left knee (principal); I10 Essential (primary) hypertension; F41.9 Anxiety disorder, unspecified; E11.9 Type 2 diabetes mellitus without complications; K21.9 Gastro-esophageal reflux disease without esophagitis; E66.9 Obesity, unspecified; G89.29 Other chronic pain; I34.1 Nonrheumatic mitral (valve) prolapse; Z79.82 Long term (current) use of aspirin; Z79.899 Other long term (current) drug therapy; Z91.040 Latex allergy status; Z91.041 Radiographic dye allergy status; Z88.8 Allergy status to other drugs, medicaments and biological substances; K22.70 Barrett's esophagus without dysplasia; E78.5 Hyperlipidemia, unspecified; F32.9 Major depressive disorder, single episode, unspecified; Z98.49 Cataract extraction status, unspecified eye; Z96.1 Presence of intraocular lens; Z90.49 Acquired absence of other specified parts of digestive tract; Z88.3 Allergy status to other anti-infective agents; Z91.011 Allergy to milk products

== ENCOUNTER 2020-11-11 05:14 | Observation (INO) ==
--- NOTE | 2020-10-19 15:27 | PAT Medication Instructions ---
Medication Instructions Date of Service October 19, 2020 Home Medications amlodipine 5 mg PO QAM aspirin [Adult Aspirin Regimen] 81 mg PO QAM atorvastatin 20 mg PO HS duloxetine 20 mg PO QPM inulin [Fiber Gummies] 2 g PO DAILY PRN labetalol 100 mg PO BID multivitamin 1 tab PO QAM pantoprazole 40 mg PO BID DO NOT take the morning of surgery inulin [Fiber Gummies] 2 g PO DAILY PRN multivitamin 1 tab PO QAM Take morning of surgery With a small sip of water, OTHERWISE NOTHING TO EAT OR DRINK AFTER MIDNIGHT: amlodipine 5 mg PO QAM aspirin [Adult Aspirin Regimen] 81 mg PO QAM (unless otherwise specified by surgeon) labetalol 100 mg PO BID pantoprazole 40 mg PO BID Take evening before surgery atorvastatin 20 mg PO HS duloxetine 20 mg PO QPM labetalol 100 mg PO BID pantoprazole 40 mg PO BID Other Notes If you have any questions please call us at [phone] or [phone] or [phone] or [phone]
--- NOTE | 2020-10-20 12:33 | Anesthesiology Consultation ---
Date of Service October 20, 2020 Assessment & Plan (1) Encounter for pre-operative examination: COVID Status: As of 10/20 assessment, patient denies travel to endemic area, known exposure/sick contacts, or symptoms of COVID19. Patient instructed that they and their household members must follow strict social distancing guidelines, wear a mask in public and avoid travel/events/gatherings for 14 days prior to surgery. Preoperative COVID19 testing to be completed prior to surgery per surgeon's arrangements (11/06). Patient made aware to self-isolate as much as possible between COVID testing and surgery. Chart Review Chart Review: Acceptable Risk for Surgery and Patient seen in Pre Admission Testing Teaching & Discussion Instructed NPO after midnight before surgery, except medications with 15 cc of water. Medication instructions provided according to the PAT guidelines. History Surgery Operation Date: 11/11/20 07:15 Proposed Procedures p Right Total Knee Arthroplasty - Arturo Marshall MD Height/Weight Height: 5 ft 3 in Weight: 87 kg Allergies Allergy/AdvReac Type Severity Reaction Status Date / Time lisinopril Allergy Intermediate DIZZY Verified 10/08/20 14:03 adhesive Allergy Mild RASH WITH Verified 10/08/20 14:03 STERI STRIPS benzoic acid Allergy Mild RASH Verified 10/08/20 14:03 latex Allergy Mild RASH Verified 10/08/20 14:03 losartan Allergy Mild COUGH Verified 10/08/20 14:03 milk Allergy Mild DIARRHEA Verified 10/08/20 14:04 Cipro Allergy Unknown NAUSEA AND Verified 11/09/16 06:49 VOMITING colesevelam Allergy Unknown UNKNOWN Verified 10/08/20 14:03 ciprofloxacin [Cipro] AdvReac Intermediate NAUSEA AND Verified 10/08/20 14:03 VOMITING Iodinated Contrast Media AdvReac Intermediate NAUSEA Verified 10/08/20 14:03 VOMITING metronidazole AdvReac Intermediate NAUSEA Verified 10/08/20 14:03 VOMITING Medications Home Medications Medication Instructions Recorded Confirmed Last Taken amlodipine 5 mg PO QAM 10/08/20 10/08/20 Unknown aspirin [Adult Aspirin Regimen] 81 mg PO QAM 10/08/20 10/08/20 Unknown atorvastatin 20 mg PO HS 10/08/20 10/08/20 Unknown duloxetine 20 mg PO QPM 10/08/20 10/08/20 Unknown inulin [Fiber Gummies] 2 g PO DAILY PRN 10/08/20 10/08/20 Unknown labetalol 100 mg PO BID 10/08/20 10/08/20 Unknown multivitamin 1 tab PO QAM 10/08/20 10/08/20 Unknown pantoprazole 40 mg PO BID 10/08/20 10/08/20 Unknown Past Medical History Medical History Anxiety Barretts esophagus Degenerative disc disease GERD (gastroesophageal reflux disease) Heart palpitations Hx of diabetes mellitus Pt reports no longer an issue, no meds. Hyperlipidemia Hypertension Osteoarthritis Restless leg syndrome Retinal disease FOLLOWS WITH A SPECIALIST Sleep apnea NO DEVICE USED Exercise / Class Metabolic Activity III < 4 Walking/Shop/Light housework (Difficulty with stairs due to back pain, "i basically crawl" but denies CP or excessive SOB with ambulation) Past Family History Family History Other No family history of adverse response to anesthesia Past Surgical History Surgical History H/O vitrectomy History of breast biopsy History of cataract surgery RT/LEFT History of cholecystectomy History of colonoscopy History of esophagogastroduodenoscopy (EGD) History of herniorrhaphy 'NUMEROUS" History of tonsillectomy and adenoidectomy History of tooth extraction History of total knee replacement LEFT Paraesophageal hernia REPAIRED X 2 (WITH MESH) Past Anesthesia History No Hx of Anesthesia Complications and No Family Hx of Anesthesia Complications History of PONV No Hx of PONV and Hx of Motion Sickness Social History Smoking Status: Never smoker Do You Dip or Chew Tobacco: No Hx Alcohol Use: No substance use type: does not use Review of Systems Pt denies any recent chest pain, shortness of breath, cough, fever, URI, or uncontrolled acid reflux (mostly controlled with PPI). +palpitations/heart racing occasionally +back pain, had steroid shot 10/19/20 Physical Exam Vital Signs BP: 114/66 P: 91bpm SPO2: 95% RA T: 98.4 F R: 16 ENMT Mouth: no dental restorations, no chipped teeth and no loose teeth Thyromental Distance: > or= 3.5 Finger Breadths Mallampati Class: II Neck neck extension not limited (but does have pain with full extension) Respiratory normal respiratory effort, lungs clear to auscultation Cardiovascular RRR, no murmur, no edema Vessels: no carotid bruit Testing Laboratory Results 10/20/20 12:49 10/20/20 12:49 PT 9.7 Seconds (9.0-12.0) 10/20/20 12:49 INR 1.0 (0.9-1.1) 10/20/20 12:49 APTT 24.5 Seconds (21.0-31.0) 10/20/20 12:49 Hemoglobin A1c 5.8 % (4.5-5.6) H 10/20/20 12:49 Blood Type A Positive 10/20/20 12:49 Antibody Screen NEGATIVE 10/20/20 12:49 *Re: elevated WBC count, Pt had steroid shot 10/19. Electrocardiogram Date: 10/20/20 Findings: + NSR @ (74bpm) Chest X-Ray Date: 10/20/20 Findings: + NAD Stress Test Date: 04/24/20 Normal study. Negative for inducible ischemia.
--- NOTE | 2020-10-20 13:55 | XRay Report ---
XR chest Pre-admission PA/Lat HISTORY: 70 years-old Female pat preoperative exam. No acute chest complaints COMPARISON: None TECHNIQUE: PA and lateral views of the chest FINDINGS: Cardiomediastinal and hilar silhouettes are within normal limits. Moderate right hemidiaphragmatic el evation. No pneumothorax, pleural effusion, airspace consolidation or overt pulmonary edema. Blunting of the right costophrenic angle is likely secondary to scarring/atelectasis. Degenerative changes of the shoulders and spine. Cholecystectomy. IMPRESSION: No acute process. ACT 112: Negative or not required by law. The above report was generated using voice recognition software. It may contain grammatical, syntax o r spelling errors. Electronically signed by: Jamie Saavedra M.D. 10/20/2020 1:54 PM
[2020-10-20 14:59] LABS: Hemoglobin 13.7 g/dL (12.0-16.0); Immature Granulocytes # (auto) 0.02 K/uL (0.00-0.02); Immature Granulocytes % (auto) 0.2 %; Lymphocytes # (auto) 1.24 K/uL (1.2-3.4); Lymphocytes % (auto) 10.5 %; Mean Corpuscular Hgb Conc 34.3 g/dL (32-36); Mean Corpuscular Volume 87.5 fL (80-100); Mean Platelet Volume 11.5 fL (7.4-10.4); Monocytes # (auto) 0.42 K/uL (0.11-0.59); Monocytes % (auto) 3.6 %; Neutrophils # (auto) 10.08 K/uL (1.4-6.5); Neutrophils % (auto) 85.7 %; Platelet Count 333 K/uL (130-400); RDW Coefficient of Variation 13.6 % (11.5-14.5); RDW Standard Deviation 43.9 fL (36.4-46.3); Red Blood Count 4.57 M/uL (4.2-5.4); White Blood Count 11.76 K/uL (4.8-10.8)
[2020-10-20 15:16] LABS: Partial Thromboplastin Ratio 0.9; Partial Thromboplastin Time 24.5 Seconds (21.0-31.0); Prothrombin Time 9.7 Seconds (9.0-12.0)
[2020-10-20 15:22] LABS: Albumin Level 3.8 gm/dl (3.4-5.0); BUN Creatinine Ratio 22.5 (10-20); Calcium 9.5 mg/dl (8.5-10.1); Creatinine Clr Calc Pharmacy 55.9 ml/min; Est GFR (African American) 67.7; Est GFR (Non-African American) 58.4; Potassium 3.6 mmol/L (3.5-5.1)
--- NOTE | 2020-10-20 17:05 | Electrocardiogram Report ---
Test Reason : Blood Pressure : / mmHG Vent. Rate : 074 BPM Atrial Rate : 074 BPM P-R Int : 184 ms QRS Dur : 098 ms QT Int : 400 ms P-R-T Axes : 069 059 057 degrees QTc Int : 444 ms Normal sinus rhythm Normal ECG No previous ECGs available Confirmed by Arcadio Coburn ([id number]) on 10/20/2020 5:04:54 PM Referred By: Arturo Marshall Confirmed By:Arcadio Coburn
[2020-10-21 06:11] LABS: Estimated Average Glucose 120 mg/dl; Hemoglobin A1C 5.8 % (4.5-5.6)
--- NOTE | 2020-11-09 21:09 | History & Physical Report ---
Date of Service November 09, 2020 Assessment & Plan (1) Primary osteoarthritis of right knee: Treatment options discussed with patient. She has failed conservative measures as above. She would like to proceed with knee replacement. Risks, benefits and alternatives to surgery including but not limited to infection, DVT, pain, stiffness, need for revision surgery, damage to blood vessels, damage to nerves, PE, , were discussed with the patient and they wish to proceed. Plan for right total knee arthroplasty at [facility] on 11/11/[address] Marshall. Will plan on Aspirin 81mg BID x 1 mo post op. She will likely want to go to [facility] inpatient rehab post discharge from the hospital. All questions answered. She will follow up post operatively. History of Present Illness Chief Complaint: Right knee pain Primary Care Provider: Keven Dave MD 70 year old female with PMHx significant for HELEN, GERD, HTN, high cholesterol, osteopenia presents with longstanding right knee pain. She has failed conservative measures including Tylenol, NSAIDs, as well as injections. Pain interfering with her ability to carry out daily activity. She would like to proceed with right knee replacement. Patient denies headaches, sweats, fevers, chills, double vision, blurred vision, cough, sore throat, dysphagia, chest pain, sob, wheezing, n/v/d/c, numbness, tingling, fatigue, urinary symptoms, mood disorders. ROS positive for right knee pain and stiffness. Allergies Allergy/AdvReac Type Severity Reaction Status Date / Time lisinopril Allergy Intermediate DIZZY Verified 10/08/20 14:03 adhesive Allergy Mild RASH WITH Verified 10/08/20 14:03 STERI STRIPS benzoic acid Allergy Mild RASH Verified 10/08/20 14:03 latex Allergy Mild RASH Verified 10/08/20 14:03 losartan Allergy Mild COUGH Verified 10/08/20 14:03 milk Allergy Mild DIARRHEA Verified 10/08/20 14:04 Cipro Allergy Unknown NAUSEA AND Verified 11/09/16 06:49 VOMITING colesevelam Allergy Unknown UNKNOWN Verified 10/08/20 14:03 ciprofloxacin [Cipro] AdvReac Intermediate NAUSEA AND Verified 10/08/20 14:03 VOMITING Iodinated Contrast Media AdvReac Intermediate NAUSEA Verified 10/08/20 14:03 VOMITING metronidazole AdvReac Intermediate NAUSEA Verified 10/08/20 14:03 VOMITING Home Medications Medication Instructions Recorded Confirmed Type amlodipine 5 mg PO QAM 10/08/20 10/08/20 History aspirin [Adult Aspirin Regimen] 81 mg PO QAM 10/08/20 10/08/20 History atorvastatin 20 mg PO HS 10/08/20 10/08/20 History duloxetine 20 mg PO QPM 10/08/20 10/08/20 History inulin [Fiber Gummies] 2 g PO DAILY PRN 10/08/20 10/08/20 History labetalol 100 mg PO BID 10/08/20 10/08/20 History multivitamin 1 tab PO QAM 10/08/20 10/08/20 History pantoprazole 40 mg PO BID 10/08/20 10/08/20 History Past Med/Surg History Medical History Anxiety Barretts esophagus Degenerative disc disease GERD (gastroesophageal reflux disease) Heart palpitations Hx of diabetes mellitus Pt reports no longer an issue, no meds. Hyperlipidemia Hypertension Osteoarthritis Restless leg syndrome Retinal disease FOLLOWS WITH A SPECIALIST Sleep apnea NO DEVICE USED Surgical History H/O vitrectomy History of breast biopsy History of cataract surgery RT/LEFT History of cholecystectomy History of colonoscopy History of esophagogastroduodenoscopy (EGD) History of herniorrhaphy 'NUMEROUS" History of tonsillectomy and adenoidectomy History of tooth extraction History of total knee replacement LEFT Paraesophageal hernia REPAIRED X 2 (WITH MESH) Family History Other No family history of adverse response to anesthesia Social History Smoking Status: Never smoker Second Hand Exposure: No; Do You Dip or Chew Tobacco: No; Hx Alcohol Use: No Preferred Language: Latvian Captain'S Assistant Required: No Beliefs That Will Affect Care: None Current Living Situation: Alone Current Living Situation Comment: WITH DOG Feels Safe at Home: Yes Safety Concerns: Feels Safe At This Time Assistive Devices: Cane, Glasses and Walker Review of Systems All systems reviewed & are unremarkable except as noted in HPI & below Physical Exam Constitutional: well developed and well nourished; no acute distress Eyes: PERRL, conjunctivae normal, anicteric sclerae ENMT: external ear and nose normal, oropharynx normal Neck: trachea midline, no thyromegaly Respiratory: normal respiratory effort, lungs clear to auscultation Cardiovascular: RRR, no murmur, no edema Musculoskeletal: Right knee: Varus alignment, tenderness medial joint line. ROM 0-110 with crepitation. Mild effusion. Stable to valgus and varus stress. Positive Dulce's. Skin: no rashes, warm and dry Neurologic: patellar DTR's 2+ bilat, sensation intact Psychiatric: A+Ox3, euthymic affect Results & Data ([facility]) Laboratory Results Lab Results 10/20/20 10/20/20 10/20/20 Range/Units 12:49 12:49 12:49 WBC 11.76 H (4.8-10.8) K/uL RBC 4.57 (4.2-5.4) M/uL Hgb 13.7 (12.0-16.0) g/dL Hct 40.0 (37-47) % MCV 87.5 (80-100) fL MCH 30.0 (25-34) pg MCHC 34.3 (32-36) g/dL RDW Std Deviation 43.9 (36.4-46.3) fL RDW Coeff of Adrianne 13.6 (11.5-14.5) % Plt Count 333 (130-400) K/uL MPV 11.5 H (7.4-10.4) fL Immature Gran % (Auto) 0.2 % Neut % (Auto) 85.7 % Lymph % (Auto) 10.5 % [place] % (Auto) 3.6 % Eos % (Auto) 0.0 % Baso % (Auto) 0.0 % Neut # (Auto) 10.08 H (1.4-6.5) K/uL Lymph # (Auto) 1.24 (1.2-3.4) K/uL [place] # (Auto) 0.42 (0.11-0.59) K/uL Eos # (Auto) 0.00 (0-0.5) K/uL Baso # (Auto) 0.00 (0-0.2) K/uL Immature Gran # (Auto) 0.02 (0.00-0.02) K/uL PT 9.7 (9.0-12.0) Seconds INR 1.0 (0.9-1.1) APTT 24.5 (21.0-31.0) Seconds PTT Ratio 0.9 Sodium (136-145) mmol/L Potassium (3.5-5.1) mmol/L Chloride (98-107) mmol/L Carbon Dioxide (21-32) mmol/L Anion Gap (3-11) BUN (7-18) mg/dl Creatinine (0.6-1.2) mg/dl Est Cr Clr Drug Dosing ml/min Est GFR ( Amer) Est GFR (Non-Af Amer) BUN/Creatinine Ratio (10-20) Glucose (70-99) mg/dl Estimat Average Glucose mg/dl Hemoglobin A1c (4.5-5.6) % Calcium (8.5-10.1) mg/dl Albumin (3.4-5.0) gm/dl Blood Type A Positive Antibody Screen NEGATIVE 10/20/20 10/20/20 Range/Units 12:49 12:49 WBC (4.8-10.8) K/uL RBC (4.2-5.4) M/uL Hgb (12.0-16.0) g/dL Hct (37-47) % MCV (80-100) fL MCH (25-34) pg MCHC (32-36) g/dL RDW Std Deviation (36.4-46.3) fL RDW Coeff of Adrianne (11.5-14.5) % Plt Count (130-400) K/uL MPV (7.4-10.4) fL Immature Gran % (Auto) % Neut % (Auto) % Lymph % (Auto) % [place] % (Auto) % Eos % (Auto) % Baso % (Auto) % Neut # (Auto) (1.4-6.5) K/uL Lymph # (Auto) (1.2-3.4) K/uL [place] # (Auto) (0.11-0.59) K/uL Eos # (Auto) (0-0.5) K/uL Baso # (Auto) (0-0.2) K/uL Immature Gran # (Auto) (0.00-0.02) K/uL PT (9.0-12.0) Seconds INR (0.9-1.1) APTT (21.0-31.0) Seconds PTT Ratio Sodium 139 (136-145) mmol/L Potassium 3.6 (3.5-5.1) mmol/L Chloride 108 H (98-107) mmol/L Carbon Dioxide 22 (21-32) mmol/L Anion Gap 9.0 (3-11) BUN 22 H (7-18) mg/dl Creatinine 0.98 (0.6-1.2) mg/dl Est Cr Clr Drug Dosing 55.9 ml/min Est GFR ( Amer) 67.7 Est GFR (Non-Af Amer) 58.4 BUN/Creatinine Ratio 22.5 H (10-20) Glucose 115 H (70-99) mg/dl Estimat Average Glucose 120 mg/dl Hemoglobin A1c 5.8 H (4.5-5.6) % Calcium 9.5 (8.5-10.1) mg/dl Albumin 3.8 (3.4-5.0) gm/dl Blood Type Antibody Screen Diagnostic Findings Right knee radiographs: Tricompartmental degenerative changes with periarticular osteophyte formation and subchondral sclerosis. Bone on bone medial compartment.
[2020-11-11] MEDS ORDERED: ROPIVACAINE 0.5% HCL/PF 150 MG, BUPIVACAINE 0.75% MPF 20 ML, EPINEPHrine 30MG/30ML (OR ... INSTIL SCH (06:00)
[2020-11-11] MEDS ORDERED: TRANEXAMIC ACID 1,000 MG **IV Intra-op IV SCH (06:00)
[2020-11-11] MEDS ORDERED: ACETAMINOPHEN 500 MG TAB PO SCH (06:00)
[2020-11-11] MEDS ORDERED: CeleBREX 200 MG CAP PO SCH (06:00)
[2020-11-11] MEDS ORDERED: TRANEXAMIC ACID 1,000 MG **IV Pre-op IV SCH (06:00)
[2020-11-11] MEDS ORDERED: GABAPENTIN 300 MG CAP PO SCH (06:00)
[2020-11-11] MEDS ORDERED: METOCLOPRAMIDE HCL 10 MG TABLET PO SCH (06:00)
[2020-11-11] MEDS ORDERED: LR 15ML/HR IV SCH (06:00)
[2020-11-11] MEDS ORDERED: FAMOTIDINE 20 MG TAB PO SCH (06:00)
[2020-11-11] MEDS ORDERED: dexAMETHasone 4 MG TAB PO SCH (06:00)
[2020-11-11] MEDS ORDERED: ceFAZolin 2000MG 2,000 MG/15 ML SYR IV SCH (06:00)
[2020-11-11] MEDS ORDERED: EPINEPHrine INJ 1 MG/ML AMP ONE (06:24)
[2020-11-11] MEDS ORDERED: BUPIVACAINE 0.5 % 5 MG/1 ML PF 10ML VIAL ONE (06:24)
[2020-11-11] MEDS ORDERED: BUPIVACAINE 0.25% 30 ML VIAL ONE (06:24)
[2020-11-11] MEDS ORDERED: DEXAMETHASONE SOD INJ 4 MG/ML VIAL ONE (06:24)
[2020-11-11] MEDS ORDERED: ORTHO JOINT ANESTHETIC ONE (06:40)
[2020-11-11] MEDS ORDERED: LIDOCAINE HCL 2% 2 ML VIAL/AMP(20MG/ML) INFIL ONE (06:40)
[2020-11-11] MEDS ORDERED: PROPOFOL IV EMULSION 10 MG/ML 20 ML VIAL IV ONE (06:40)
[2020-11-11] MEDS ORDERED: ONDANSETRON INJ 2 MG/ML 2 ML VIAL ONE (06:40)
[2020-11-11] MEDS ORDERED: MIDAZOLAM HCL 1 MG/ML 2ML VIAL ONE ×2 (06:40→06:41)
[2020-11-11] MEDS ORDERED: BACITRACIN INJ 50,000 UNIT VIAL ONE (06:41)
[2020-11-11] MEDS ORDERED: fentaNYL citrate 100 MCG/2 ML VIAL IV PRN (06:52)
[2020-11-11] MEDS ORDERED: ePHEDrine sulfate 50 MG/ML AMP IV PRN (06:52)
[2020-11-11] MEDS ORDERED: ONDANSETRON INJ 2 MG/ML 2 ML VIAL IV PRN ×2 (06:52→10:33)
[2020-11-11] MEDS ORDERED: ATROPINE SULFATE 0.1 MG/ML 10ML SYR IV PRN (06:52)
--- NOTE | 2020-11-11 06:56 | History & Physical Bridge Note ---
Date of Service November 11, 2020 History & Physical Bridge Note I have examined the patient, reviewed the History & Physical and in the interval since the performance of the History & Physical I have noted the following changes of clinical significance: no changes noted
[2020-11-11] MEDS ORDERED: ePHEDrine sulfate 50 MG/ML SYR ONE (07:57)
[2020-11-11] MEDS ORDERED: PHENYLEPHRINE 100MCG/ML 5ML SYR ONE (07:57)
--- NOTE | 2020-11-11 08:34 | Operative Report ---
Post Operative Report Pre & Post Diagnosis Operation Date: 11/11/20 07:00 Pre-Op Diagnosis: Unilateral Primary Osteoarthritis, Right Knee Post-Op Diagnosis: Unilateral Primary Osteoarthritis, Right Knee I identified the patient and participated in the time-out.: Yes Procedure Operation Date: 11/11/20 07:00 Actual Procedures p Right Total Knee Arthroplasty(Right) - Arturo Marshall MD Surgeon Arturo Marshall MD Certified Dietary Manager George HASKINS Estimated Blood Loss 5 Findings Consistent with Post-Op Diagnosis Specimens Bone cuts Drains 2 Hemovac Anesthesia Type MAC Spinal Regional Complications none Disposition Accompanied Patient To Recovery: No Disposition: Recovery Room Indications 7-year-old female with chronic progressive osteoarthritis right knee previous left total knee replacement. Radiographs demonstrate that she has tricompartmental osteoarthritis [id number] medial compartment and advanced patellofemoral OA Description of Procedure The patient was taken to the operating room and anesthetized under spinal MAC regional. Patient was placed supine on the the operating table. A pneumatic tourniquet was placed about the right upper thigh. The knee exam demonstrated varus knee good range of motion patellofemoral crepitation and a moderate large effusion. The involved leg was elevated exsanguinated with Esmarch bandage and the pneumatic tourniquet was raised to 325 millimeters mercury. A longitudinal incision was made across the anterior knee. Skin flaps were elevated. An incis ion was made into the medial retinaculum and extended up into the mid third of the quadriceps tendon and extended down to the tibial tubercle. Intra-articular findings demonstrated grade 4 [id number] medial facet of patella with medial compartment patellofemoral joint and medial compartment of the knee [id number] with tricompartmental osteophytic changes and a chronic medial meniscus tear. T he knee was exposed by excising cruciate ligaments and menisci. The infrapatellar fat pad was resected. The fat pad over the anterior femur at the upper aspect of the articular surface was resected for placement of the component in that area. A subperiosteal peel lateral release was performed around the patella. Some of the inflamed synovium was resected with a partial synovectomy. The Lin & Nephew journey 2.0 posterior stabilized total knee arthroplasty system was utilized for the procedure. The custom femoral cutting guide was pinned in position. The distal femoral cut was made. The size 5, 5 in 1 cutting block was placed. The anterior posterior and chamfer cuts were made. The knee was extended and a free hand cut technique was performed to the patella. The patella with was measured and the width was reproduced using a 35 symmetrical patella component. 3 drill holes are made for the patella component pegs. The tibia was then subluxed. The custom tibial cutting block was pinned in position and the proximal tibial cut was made with the oscillating saw. The size 3 tibial trial was externally rotated in line with the tibial tubercle and pinned in position. The punch for the stem was used. The femoral trial was inserted and centered the notch cutting devices were used and the collet was placed. Tibial trials were used for the insert. The size 12 trial gave bal anced ligaments through full range of motion. Patella tracking was assessed with range of motion. The patella tracked centrally. The trials were removed. The Orthomix anesthetic cocktail was injected per protocol. The cut bone surfaces and soft tissue were copiously irrigated with antibiotic solution with bacitracin. The final components were cemented with Simplex cement. The final components were 5 right posterior stabilized Lin & Nephew journey 2.0 femoral component, 3 tibial component, 12 posterior stabilized polyethylene, 35 symmetrical patella. After the cement cured the Betadine soak was used per protocol. the knee was copiously irrigated with pulsatile lavage antibiotic solution with bacitracin. 2 drains were brought out laterally connected to Hemovac. The quadriceps tendon and medial retinaculum were closed with interrupted [id number] #1 Vicryl sutures. The knee was taken through full range of motion and repair was secure. Patient had full range of motion 0 through 140 degrees range of motion. The subcutaneous tissues were closed with 2-0 Vicryl sutures. The skin was closed with katie. A sterile dressing was applied. The tourniquet was let down and the patient had good capillary refill to the extremity. The patient tolerated the procedure well. My physician restaurant assistant George HASKINS assisted in the procedure including prepping draping leg positioning soft tissue retraction instrument management and assisted in the closure ,dressings application and will participate in postoperative care the patient. I attest to the content of the Intraoperative Record and any orders documented therein. Any exceptions are noted below.
--- NOTE | 2020-11-11 09:54 | XRay Report ---
XR knee RT 1 or 2V routine CLINICAL HISTORY: Postoperative evaluation. COMPARISON: None FINDINGS: Alignment of the total right knee arthroplasty is anatomic. No periprosthetic fracture or unexpected radiopaque foreign body. There are drains and skin katie. IMPRESSION: Expected findings following total right knee arthroplasty. ACT 112: Negative or not required by law. Electronically signed by: Tio Flores M.D. 11/11/2020 9:53 AM
--- NOTE | 2020-11-11 10:14 | Anesthesiology Progress Note ---
Date of Service November 11, 2020 Anesthesia Post Procedure Vital Signs Vital Signs: Temp Pulse Pulse Resp BP Pulse Ox 11/11/20 10:10 36.2 C L 77 15 110/63 95 11/11/20 10:00 80 19 115/66 93 11/11/20 09:50 78 18 115/66 93 11/11/20 09:40 79 14 104/71 94 11/11/20 09:30 81 16 107/67 94 11/11/20 09:20 36.3 C L 81 20 107/61 93 11/11/20 06:10 36.7 C 69 18 118/74 95 11/11/20 05:30 36.8 C 81 20 147/87 H 95 Transfer of Care Handoff Completed per policy Notes Mental Status: alert / awake / arousable Patient Amnestic to Procedure: Yes Nausea / Vomiting: adequately controlled Pain: adequately controlled Airway Patency, RR, SpO2: stable & adequate BP & HR: stable & adequate Hydration State: stable & adequate Neuraxial Anesthesia: was administered and sensory block is resolving Anesthetic Complications: no major complications apparent
[2020-11-11] MEDS ORDERED: bisacodyL 10 MG SUPP PR PRN (10:33)
[2020-11-11] MEDS ORDERED: METOCLOPRAMIDE HCL INJ 5 MG/ML 2 ML VIAL IV PRN (10:33)
[2020-11-11] MEDS ORDERED: MAGNESIUM HYDROXIDE SUSP 30 ML UDC PO PRN (10:33)
[2020-11-11] MEDS ORDERED: NALOXONE HCL 0.4 MG/1 ML VIAL/CARP IV PRN (10:33)
[2020-11-11] MEDS ORDERED: HYDROmorphone INJ 0.5 MG/0.5 ML SYR IV PRN (10:33)
--- NOTE | 2020-11-11 11:08 | Consultation ---
Date of Consultation November 11, 2020 Assessment & Plan (1) Primary osteoarthritis of right knee: Status post right TKA by Dr. Marshall, POD #0 EBL 5ml; Hemovac in place tolerated procedure well pain/wound management per ortho activity and therapy as directed by ortho encourage incentive spirometry, wean o2 as able monitor H/H, pre op hgb 13.7 (2) HTN (hypertension): BP low post operatively continue IVF place parameters on labetalol and hold amlodipine (3) Dyslipidemia: continue statin (4) Pre-diabetes: a1c 5.8 monitor fbs (5) Depression: continue cymbalta (6) Sleep apnea: per reports pt mostly noncompliant will place order for cpap (7) Barretts esophagus: continue PPI (8) DVT prophylaxis: per primary Dispo: per primary PCP: Dr. Dave FULL CODE Pt was seen and examined in collaboration with Dr. Fagan, please see addendum Thank you for this consultation. We will follow the patient with you during their hospital stay. You can reach a member of the [facility] Hospitalist Team 13/03 via pager @ [phone] or contact hospitalist role on tiger text. Supervising Physician Co-Signing Physician Notes Attending addendum Patient was seen and examined in medical floor She is status post right TKA Remains very drowsy following the procedure and also due to effects of narcotics Denies any significant symptoms On examination Very drowsy during examination Hemodynamically stable Chest-clear to auscultate bilaterally Heart-S1-S2, regular Abdomen-benign Remedies-trace edema bilaterally Her labs and imaging studies reviewed She is a status post right TKA with medical history significant for hypertension, hyperlipidemia, prediabetes and depression Remains a stable Agree with assessment and plan as outlined above by Molly Fagan History of Present Illness Requesting Physician: Dr. Marshall Reason for Consultation: Postoperative medical management Attending Physician: Arturo Marshall MD History of Present Illness This is a 70-year-old female who has significant past medical history of HTN, HLD, Lainez's esophagus, RLS, prediabetes, HELEN non compliant with cpap, anxiety who presents for elective right total knee arthroplasty. She tolerated procedure well and postoperatively is drowsy. She offers no complaints or concerns. She denies fever, chills, sweats, lightheadedness, dizziness, chest pain, shortness of breath, cough, nausea, vomiting, abdominal pain. She currently denies any knee pain but continues to feel effect of anesthesia. She does have history of hypertension well- controlled on labetalol and amlodipine as outpatient. She states that she did take her morning medications. She also has history of prediabetes, her last A1c on 11/08 was 5.8. Allergies Allergy/AdvReac Type Severity Reaction Status Date / Time lisinopril Allergy Intermediate DIZZY Verified 11/11/20 05:36 adhesive Allergy Mild RASH WITH Verified 10/08/20 14:03 STERI STRIPS benzoic acid Allergy Mild RASH Verified 11/11/20 05:36 latex Allergy Mild RASH Verified 11/11/20 05:36 losartan Allergy Mild COUGH Verified 11/11/20 05:36 milk Allergy Mild DIARRHEA Verified 11/11/20 05:36 Cipro Allergy Unknown NAUSEA AND Verified 11/09/16 06:49 VOMITING colesevelam Allergy Unknown UNKNOWN Verified 11/11/20 05:36 ciprofloxacin [Cipro] AdvReac Intermediate NAUSEA AND Verified 11/11/20 05:36 VOMITING Iodinated Contrast Media AdvReac Intermediate NAUSEA Verified 11/11/20 05:36 VOMITING metronidazole AdvReac Intermediate NAUSEA Verified 11/11/20 05:36 VOMITING Home Medications Medication Instructions Recorded Confirmed Type amlodipine 5 mg PO QAM 10/08/20 11/11/20 History aspirin [Adult Aspirin Regimen] 81 mg PO QAM 10/08/20 11/11/20 History atorvastatin 20 mg PO HS 10/08/20 11/11/20 History duloxetine 20 mg PO QPM 10/08/20 11/11/20 History inulin [Fiber Gummies] 2 g PO DAILY PRN 10/08/20 11/11/20 History labetalol 100 mg PO BID 10/08/20 11/11/20 History multivitamin 1 tab PO QAM 10/08/20 11/11/20 History pantoprazole 40 mg PO BID 10/08/20 11/11/20 History Patient History Medical History (Updated 11/11/20 @ 11:32 by Lidya Ruiz PA-C) Anxiety Barretts esophagus Degenerative disc disease GERD (gastroesophageal reflux disease) Heart palpitations Hyperlipidemia Hypertension Osteoarthritis Pre-diabetes Restless leg syndrome Retinal disease FOLLOWS WITH A SPECIALIST Sleep apnea NO DEVICE USED Surgical History H/O vitrectomy History of breast biopsy History of cataract surgery RT/LEFT History of cholecystectomy History of colonoscopy History of esophagogastroduodenoscopy (EGD) History of herniorrhaphy 'NUMEROUS" History of tonsillectomy and adenoidectomy History of tooth extraction History of total knee replacement LEFT Paraesophageal hernia REPAIRED X 2 (WITH MESH) Family History Brother , 52 Myocardial infarction Father Alzheimer disease Coronary heart disease Other No family history of adverse response to anesthesia Social History Smoking Status: Never smoker Second Hand Exposure: No; Do You Dip or Chew Tobacco: No; Hx Alcohol Use: No Preferred Language: Haitian Educational Psychology Professor Required: No Beliefs That Will Affect Care: None Current Living Situation: Alone Current Living Situation Comment: WITH DOG Feels Safe at Home: Yes Safety Concerns: Feels Safe At This Time Assistive Devices: Glasses and Walker Review of Systems Review of Systems: All systems reviewed & are unremarkable except as noted in HPI & below Physical Exam Physical Exam: Constitutional: WD/WN, female, drowsy, arouses to verbal stimulation, vitals as above, NAD, lying in bed Head: Normocephalic, Atraumatic Eyes: PERRL, conjunctivae normal, anicteric sclerae ENMT: external ear and nose normal, oropharynx normal Neck: trachea midline, no thyromegaly normal visual inspection Respiratory: On O2 via NC, normal respiratory effort, lungs clear to auscultation, no wheeze, rales, rhonchi. Normal insp/exp effort, no accessory muscle use Cardiovascular: RRR, no murmur, no edema, SCD/teds in place vessels: no JVD or carotid bruit Chest: normal inspection of chest Abdomen: normal bowel sounds, soft, nontender, no hepatosplenomegaly Musculoskeletal: no cyanosis or clubbing, unable to assess strength given recent procedure and effects of anesthesia, patient drowsy and uncooperative with exam, right lower extremity with VAC in place Skin: no rashes, warm and dry normal turgor Neurologic: PERRL, EOMI, accommodation nl, no face palsy, no dysarthria CN's II-XI intact bilaterally and moves all extremities Psychiatric: A+Ox3, euthymic affect Lymphatic: no cervical or axillary lymphadenopathy : deferred Results & Data ([facility]) Vital Signs (Past 12 Hours) Vital Signs Temp Pulse Pulse Pulse Resp BP Pulse Ox 11/11/20 10:53 36.4 C L 82 16 99/62 L 92 11/11/20 10:25 36.5 C 83 14 105/68 92 11/11/20 10:10 36.2 C L 77 15 110/63 95 11/11/20 10:00 80 19 115/66 93 11/11/20 09:50 78 18 115/66 93 11/11/20 09:40 79 14 104/71 94 11/11/20 09:30 81 16 107/67 94 11/11/20 09:20 36.3 C L 81 20 107/61 93 11/11/20 06:10 36.7 C 69 18 118/74 95 11/11/20 05:30 36.8 C 81 20 147/87 H 95 Laboratory Results Preop labs 10/20/2020 WBC 11.76, H&H 13.7 and 40.0, platelet 333 BMP: Sodium 136, K3.6 BUN 22, creatinine 0.88 A1c 5.8 Diagnostic Findings knee xray: IMPRESSION: Expected findings following total right knee arthroplasty. cxr: IMPRESSION: No acute process. Medications Administered Celecoxib (Celebrex 200 Mg Cap) 200 mg PO PREOP MICHEL Stop: 11/11/20 18:00 Last Admin: 11/11/20 05:47 Dose: 200 mg Documented by: [id number] Dexamethasone (Dexamethasone 4 Mg Tab) 8 mg PO PREOP MICHEL Stop: 11/11/20 18:00 Last Admin: 11/11/20 05:43 Dose: 8 mg Documented by: [id number] Famotidine (Famotidine 20 Mg Tab) 20 mg PO PREOP MICHEL Stop: 11/11/20 18:00 Last Admin: 11/11/20 05:44 Dose: 20 mg Documented by: [id number] Gabapentin (Gabapentin 300 Mg Cap) 300 mg PO PREOP MICHEL Stop: 11/11/20 18:00 Last Admin: 11/11/20 05:46 Dose: 300 mg Documented by: [id number] Cefazolin Sodium (Ancef 2000mg) 2,000 mg in 15 mls @ 3.75 mls/min IV PREOP MICHEL; Protocol Stop: 11/11/20 18:00 Last Admin: 11/11/20 07:11 Dose: 3.75 mls/min Documented by: [id number] Tranexamic Acid (Tranexamic Acid / 0.7% Nacl) 1,000 mg in 100 mls @ 600 mls/hr IV TODAY@0600 MICHEL Stop: 11/11/20 18:00 Last Infusion: 11/11/20 07:11 Dose: 0 mls/hr Documented by: [id number] Admin: 11/11/20 06:56 Dose: 600 mls/hr Documented by: [id number] Tranexamic Acid (Tranexamic Acid / 0.7% Nacl) 1,000 mg in 100 mls @ 600 mls/hr IV TODAY@0600 [facility] Stop: 11/11/20 18:00 Last Infusion: 11/11/20 10:44 Dose: 0 mls/hr Documented by: [id number] Admin: 11/11/20 08:33 Dose: 600 mls/hr Documented by: [id number] Lactated Ringer's (Lr) 1,000 mls @ 15 mls/hr IV .Q24H MICHEL Stop: 11/12/20 05:59 Last Infusion: 11/11/20 07:11 Dose: 0 mls/hr Documented by: [id number] Admin: 11/11/20 05:43 Dose: 15 mls/hr Documented by: [id number] Metoclopramide HCl (Metoclopramide Hcl 10 Mg Tablet) 10 mg PO PREOP MICHEL Stop: 11/11/20 18:00 Last Admin: 11/11/20 05:44 Dose: 10 mg Documented by: [id number] Discontinued Medications Acetaminophen (Acetaminophen 500 Mg Tab) 1,000 mg PO PREOP MICHEL Stop: 11/11/20 18:00 Last Admin: 11/11/20 05:48 Dose: 1,000 mg Documented by: [id number] Bacitracin (Bacitracin Inj 50,000 Unit Vial) Confirm Administered Dose 50,000 units .ROUTE .STK-MED ONE Stop: 11/11/20 06:42 Last Admin: 11/11/20 08:02 Dose: 50,000 units Documented by: [id number] Ropivacaine 150 mg/Bupivacaine HCl 20 ml/Epinephrine HCl 0.15 mg/Ketorolac Tromethamine 30 mg/Dexamethasone 4 mg/ Ketamine HCl 10 mg/ Clonidine HCl 100 mcg/ Sodium Chloride 88.35 mls @ 0 mls/hr INSTIL TODAY@0600 [facility]; Protocol Stop: 11/11/20 06:01 Last Admin: 11/11/20 08:32 Dose: 88 mls/hr Documented by: [id number] ECG Rate (beats per minute): 74 Rhythm: normal sinus
[2020-11-11] MEDS: SODIUM CHLORIDE 0.9% 1000ML 1,000 ML IV SCH ×2 (11:43→21:03)
[2020-11-11] MEDS: ACETAMINOPHEN 500 MG TAB PO SCH ×2 (14:39→22:24)
[2020-11-11] MEDS: ceFAZolin 2000MG 2,000 MG/15 ML SYR IV SCH ×2 (14:40→22:24)
[2020-11-11] MEDS: DOCUSATE SODIUM 100 MG CAP PO SCH (20:46)
[2020-11-11] MEDS: CeleBREX 200 MG CAP PO SCH (20:47)
[2020-11-11] MEDS: LABETALOL HCL 100 MG TAB PO SCH (20:47)
[2020-11-11] MEDS: PANTOprazole 40 MG TAB PO SCH (20:47)
[2020-11-11] MEDS: DULoxetine HCL 20 MG CAP PO SCH (20:47)
[2020-11-11] MEDS: ASPIRIN 81 MG ECTAB PO SCH (20:47)
[2020-11-11] MEDS: ATORVASTATIN 20 MG TAB PO SCH (20:48)
[2020-11-11] MEDS: SENNA 8.6 MG TAB PO SCH (20:48)
[2020-11-12] MEDS: oxyCODONE HCL IR 5 MG TAB (IMMEDIATE RELEASE) PO PRN ×3 (01:13→13:31)
[2020-11-12] MEDS: ACETAMINOPHEN 500 MG TAB PO SCH ×3 (06:14→22:22)
[2020-11-12 07:37] LABS: Hemoglobin 11.6 g/dL (12.0-16.0); Mean Corpuscular Hemoglobin 30.7 pg (25-34); Mean Corpuscular Hgb Conc 35.2 g/dL (32-36); Mean Corpuscular Volume 87.3 fL (80-100); Mean Platelet Volume 11.5 fL (7.4-10.4); Platelet Count 257 K/uL (130-400); RDW Coefficient of Variation 14.1 % (11.5-14.5); Red Blood Count 3.78 M/uL (4.2-5.4); White Blood Count 12.12 K/uL (4.8-10.8)
[2020-11-12 08:05] LABS: BUN Creatinine Ratio 20.5 (10-20); Calcium 8.2 mg/dl (8.5-10.1); Creatinine Clr Calc Pharmacy 57.7 ml/min; Est GFR (African American) 70.3; Est GFR (Non-African American) 60.7; Potassium 3.9 mmol/L (3.5-5.1)
[2020-11-12] MEDS: LABETALOL HCL 100 MG TAB PO SCH ×2 (08:29→20:31)
[2020-11-12] MEDS: PANTOprazole 40 MG TAB PO SCH ×2 (08:29→20:31)
[2020-11-12] MEDS: DOCUSATE SODIUM 100 MG CAP PO SCH ×2 (08:29→20:31)
[2020-11-12] MEDS: MULTIVITAMIN TAB PO SCH (08:29)
[2020-11-12] MEDS: CeleBREX 200 MG CAP PO SCH ×2 (08:29→20:32)
[2020-11-12] MEDS: ASPIRIN 81 MG ECTAB PO SCH ×2 (08:29→20:31)
--- NOTE | 2020-11-12 08:44 | Anesthesiology Progress Note ---
Date of Service November 12, 2020 Anesthesia Post Procedure Vital Signs Vital Signs: Temp Pulse Pulse Pulse Resp BP Pulse Ox 11/12/20 08:28 89 121/83 11/12/20 06:50 36.8 C 86 16 119/67 91 11/12/20 02:19 36.6 C 79 16 121/63 93 11/11/20 22:38 68 14 92 11/11/20 21:55 36.6 C 69 16 116/69 93 11/11/20 20:44 70 110/73 11/11/20 19:17 36.5 C 74 16 108/71 91 11/11/20 15:20 36.3 C L 81 16 102/63 90 11/11/20 13:48 36.5 C 80 16 100/64 91 11/11/20 12:25 36.5 C 79 15 101/64 94 11/11/20 11:27 81 20 100/64 95 11/11/20 10:53 36.4 C L 82 16 99/62 L 92 11/11/20 10:25 36.5 C 83 14 105/68 92 11/11/20 10:10 36.2 C L 77 15 110/63 95 11/11/20 10:00 80 19 115/66 93 11/11/20 09:50 78 18 115/66 93 11/11/20 09:40 79 14 104/71 94 11/11/20 09:30 81 16 107/67 94 11/11/20 09:20 36.3 C L 81 20 107/61 93 Pain Intensity Right Knee: Pain Intensity: 4 Notes Mental Status: alert / awake / arousable and participated in evaluation Patient Amnestic to Procedure: Yes Nausea / Vomiting: adequately controlled Pain: adequately controlled Airway Patency, RR, SpO2: stable & adequate BP & HR: stable & adequate Hydration State: stable & adequate Neuraxial Anesthesia: was administered and sensory block resolved Anesthetic Complications: no major complications apparent
[2020-11-12] MEDS ORDERED: NON-FORMULARY MEDICATION (Multivitamin Tablet,Chewable) PO SCH (09:00)
[2020-11-12] MEDS ORDERED: amLODIPine BESYLATE 5 MG TAB PO SCH (09:00)
--- NOTE | 2020-11-12 09:53 | Orthopedic Progress Note ---
Date of Service November 12, 2020 Assessment & Plan (1) Primary osteoarthritis of right knee: Postop day 1 status post right total knee arthroplasty. PT/OT protocols. Weightbearing as tolerated. DVT prophylaxis-aspirin p.o. twice daily, SCDs, ANDREW bran pain control as written. Pain control as written. DC planning-[facility] upon discharge. Admission and Anticipated Discharge Date Admission Date: November 11, 2020 Supervising Physician Co-Signing Physician Notes Patient seen and examined. Agree with JOZEF Gutierrez's note as above. She is doing well. Pain is controlled. She has been ambulating in her room, but not yet in the hallway. Encouraged range of motion of the knee and ambulation. Plan upon discharge is rehab. Subjective Postop day 1 Patient currently sitting up in bed awake and alert. States she is having a little bit more pain this morning but currently is controlled. Denies shortness of breath, chest pain, lightheadedness. States that she is planning on going to [facility] upon discharge. Physical Exam 2 Physical Exam: Dressings are clean, dry, and intact. Calves are soft nontender. Neurovascular intact. Toes are mobile. She has good dorsiflexion plantarflexion of the right foot. She had 50 mL out of her Hemovac from the latest shift. Results & Data ([facility]) Vital Signs (Past 12 Hours) Vital Signs Temp Pulse Pulse Resp BP Pulse Ox 11/12/20 08:28 89 121/83 11/12/20 06:50 36.8 C 86 16 119/67 91 11/12/20 02:19 36.6 C 79 16 121/63 93 11/11/20 22:38 68 14 92 11/11/20 21:55 36.6 C 69 16 116/69 93 Laboratory Results Laboratory Results WBC 12.12 K/uL (4.8-10.8) H 11/12/20 06:32 RBC 3.78 M/uL (4.2-5.4) L 11/12/20 06:32 Hgb 11.6 g/dL (12.0-16.0) L 11/12/20 06:32 Hct 33.0 % (37-47) L 11/12/20 06:32 MCV 87.3 fL (80-100) 11/12/20 06:32 MCH 30.7 pg (25-34) 11/12/20 06:32 MCHC 35.2 g/dL (32-36) 11/12/20 06:32 RDW Std Deviation 45.0 fL (36.4-46.3) 11/12/20 06:32 RDW Coeff of Adrianne 14.1 % (11.5-14.5) 11/12/20 06:32 Plt Count 257 K/uL (130-400) 11/12/20 06:32 MPV 11.5 fL (7.4-10.4) H 11/12/20 06:32 Immature Gran % (Auto) 0.2 % 10/20/20 12:49 Neut % (Auto) 85.7 % 10/20/20 12:49 Lymph % (Auto) 10.5 % 10/20/20 12:49 [place] % (Auto) 3.6 % 10/20/20 12:49 Eos % (Auto) 0.0 % 10/20/20 12:49 Baso % (Auto) 0.0 % 10/20/20 12:49 Neut # (Auto) 10.08 K/uL (1.4-6.5) H 10/20/20 12:49 Lymph # (Auto) 1.24 K/uL (1.2-3.4) 10/20/20 12:49 [place] # (Auto) 0.42 K/uL (0.11-0.59) 10/20/20 12:49 Eos # (Auto) 0.00 K/uL (0-0.5) 10/20/20 12:49 Baso # (Auto) 0.00 K/uL (0-0.2) 10/20/20 12:49 Immature Gran # (Auto) 0.02 K/uL (0.00-0.02) 10/20/20 12:49 PT 9.7 Seconds (9.0-12.0) 10/20/20 12:49 INR 1.0 (0.9-1.1) 10/20/20 12:49 APTT 24.5 Seconds (21.0-31.0) 10/20/20 12:49 PTT Ratio 0.9 10/20/20 12:49 Sodium 141 mmol/L (136-145) 11/12/20 06:32 Potassium 3.9 mmol/L (3.5-5.1) 11/12/20 06:32 Chloride 114 mmol/L (98-107) H 11/12/20 06:32 Carbon Dioxide 23 mmol/L (21-32) 11/12/20 06:32 Anion Gap 4.0 (3-11) 11/12/20 06:32 BUN 20 mg/dl (7-18) H 11/12/20 06:32 Creatinine 0.95 mg/dl (0.6-1.2) 11/12/20 06:32 Est Cr Clr Drug Dosing 57.7 ml/min 11/12/20 06:32 Est GFR ( Amer) 70.3 11/12/20 06:32 Est GFR (Non-Af Amer) 60.7 11/12/20 06:32 BUN/Creatinine Ratio 20.5 (10-20) H 11/12/20 06:32 Glucose 143 mg/dl (70-99) H 11/12/20 06:32 Estimat Average Glucose 120 mg/dl 10/20/20 12:49 Hemoglobin A1c 5.8 % (4.5-5.6) H 10/20/20 12:49 Calcium 8.2 mg/dl (8.5-10.1) L 11/12/20 06:32 Albumin 3.8 gm/dl (3.4-5.0) 10/20/20 12:49 25-OH Vitamin D Total 25.2 ng/ml (30-100) L 11/11/20 05:30 Blood Type A Positive 10/20/20 12:49 Antibody Screen NEGATIVE 10/20/20 12:49
--- NOTE | 2020-11-12 15:26 | Hospitalist Progress Note ---
Date of Service November 12, 2020 Assessment & Plan (1) Primary osteoarthritis of right knee: Status post right TKA by Dr. Marshall, POD #1 EBL 5ml; Hemovac in place tolerated procedure well Management will be as per hospital Activity and therapy as directed by ortho Encourage incentive spirometry, wean o2 as able PT and OT evaluation and possible rehab placement Acute blood loss anemia monitor H/H, pre op hgb 13.7 Hemoglobin 11.6 as of 11/12/2020 Remains asymptomatic (2) HTN (hypertension): BP low post operatively continue IVF place parameters on labetalol and hold amlodipine Blood pressure seems to be in the lower side of normal (3) Dyslipidemia: continue statin (4) Pre-diabetes: a1c 5.8 monitor fbs (5) Depression: continue cymbalta (6) Sleep apnea: per reports pt mostly noncompliant will place order for cpap (7) Barretts esophagus: continue PPI (8) DVT prophylaxis: per primary Dispo: per primary PCP: Dr. Dave FULL CODE Medically stable Thank you for this consultation. We will follow the patient with you during their hospital stay. You can reach a member of the [facility] Hospitalist Team 13/03 via pager @ [phone] or contact hospitalist role on tiger text. Admission and Anticipated Discharge Date Admission Date: November 11, 2020 Subjective 11/12/2020 The patient was seen and examined in medical floor He is a status post right total knee replacement POD #1 Has been out of bed on a chair Denies any significant symptoms Review of Systems Review of Systems: All systems reviewed and are unremarkable except as noted below Musculoskeletal: + joint pain (Right knee pain with movement) Physical Exam Physical Exam: Constitutional: WD/WN, female, drowsy, arouses to verbal stimulation, vitals as above, NAD, lying in bed Head: Normocephalic, Atraumatic Eyes: PERRL, conjunctivae normal, anicteric sclerae ENMT: external ear and nose normal, oropharynx normal Neck: trachea midline, no thyromegaly normal visual inspection Respiratory: On O2 via NC, normal respiratory effort, lungs clear to auscultation, no wheeze, rales, rhonchi. Normal insp/exp effort, no accessory muscle use Cardiovascular: RRR, no murmur, no edema, SCD/teds in place vessels: no JVD or carotid bruit Chest: normal inspection of chest Abdomen: normal bowel sounds, soft, nontender, no hepatosplenomegaly Musculoskeletal: no cyanosis or clubbing, unable to assess strength given recent procedure and effects of anesthesia, patient drowsy and uncooperative with exam, right lower extremity with VAC in place Skin: no rashes, warm and dry normal turgor Neurologic: PERRL, EOMI, accommodation nl, no face palsy, no dysarthria CN's II-XI intact bilaterally and moves all extremities Psychiatric: A+Ox3, euthymic affect Lymphatic: no cervical or axillary lymphadenopathy : deferred Results & Data Results & Data ([facility]) Vital Signs (Past 12 Hours) Vital Signs Temp Pulse Resp BP Pulse Ox 11/12/20 11:37 36.4 C L 75 16 104/63 95 11/12/20 08:28 89 121/83 11/12/20 06:50 36.8 C 86 16 119/67 91 Laboratory Results Short CBC 11/12/20 Range/Units 06:32 WBC 12.12 H (4.8-10.8) K/uL Hgb 11.6 L (12.0-16.0) g/dL Hct 33.0 L (37-47) % Plt Count 257 (130-400) K/uL BMP 11/12/20 06:32 Sodium 141 Potassium 3.9 Chloride 114 H Carbon Dioxide 23 BUN 20 H Creatinine 0.95 Glucose 143 H Calcium 8.2 L Medications Administered Current Inpatient Medications Acetaminophen (Acetaminophen 500 Mg Tab) 1,000 mg PO Q8 MICHEL Stop: 12/11/20 13:59 Last Admin: 11/12/20 13:32 Dose: 1,000 mg Documented by: Amlodipine Besylate (Amlodipine Besylate 5 Mg Tab) 5 mg PO QAM MICHEL Stop: 12/12/20 08:59 Aspirin (Aspirin 81 Mg Ectab) 81 mg PO BID MICHEL Stop: 12/11/20 20:59 Last Admin: 11/12/20 08:29 Dose: 81 mg Documented by: Atorvastatin Calcium (Atorvastatin 20 Mg Tab) 20 mg PO HS MICHEL Stop: 12/11/20 20:59 Last Admin: 11/11/20 20:48 Dose: 20 mg Documented by: Bisacodyl (Bisacodyl 10 Mg Supp) 10 mg MN DAILY PRN PRN Reason: Constipation Stop: 12/11/20 10:32 Celecoxib (Celebrex 200 Mg Cap) 200 mg PO BID [facility] Stop: 12/11/20 20:59 Last Admin: 11/12/20 08:29 Dose: 200 mg Documented by: Docusate Sodium (Docusate Sodium 100 Mg Cap) 100 mg PO BID MICHEL Stop: 12/11/20 20:59 Last Admin: 11/12/20 08:29 Dose: 100 mg Documented by: Duloxetine HCl (Duloxetine Hcl 20 Mg Cap) 20 mg PO QPM MICHEL Stop: 12/11/20 20:59 Last Admin: 11/11/20 20:47 Dose: 20 mg Documented by: Hydromorphone HCl (Hydromorphone Inj 0.5 Mg/0.5 Ml Syr) 0.5 mg IV Q4H PRN PRN Reason: Pain or Pre PT Stop: 11/25/20 10:32 Labetalol HCl (Labetalol Hcl 100 Mg Tab) 100 mg PO BID [facility] Stop: 12/11/20 20:59 Last Admin: 11/12/20 08:29 Dose: 100 mg Documented by: Magnesium Hydroxide (Magnesium Hydroxide Susp 30 Ml Udc) 30 ml PO Q6H PRN PRN Reason: Constipation Stop: 12/11/20 10:32 Metoclopramide HCl (Metoclopramide Hcl Inj 5 Mg/Ml 2 Ml Vial) 10 mg IV Q6H PRN PRN Reason: Nausea And Vomiting Stop: 12/11/20 10:32 Multivitamins (Multivitamin Tab) 1 tab PO QAM [facility] Stop: 12/12/20 08:59 Last Admin: 11/12/20 08:29 Dose: 1 tab Documented by: Naloxone HCl (Naloxone Hcl 0.4 Mg/1 Ml Vial/Carp) 0.1 mg IV Q5M PRN PRN Reason: Oversedation/Resp Depression Stop: 12/11/20 10:32 Ondansetron HCl (Ondansetron Inj 2 Mg/Ml 2 Ml Vial) 4 mg IV Q6H PRN PRN Reason: Nausea And Vomiting Stop: 12/11/20 10:32 Oxycodone HCl (Oxycodone Hcl Ir 5 Mg Tab (Immediate Release)) 5 - 10 mg PO Q4H PRN PRN Reason: Pain or Pre PT Stop: 11/25/20 10:32 Last Admin: 11/12/20 13:31 Dose: 5 mg Documented by: Pantoprazole Sodium (Pantoprazole 40 Mg Tab) 40 mg PO BID MICHEL Stop: 12/11/20 20:59 Last Admin: 11/12/20 08:29 Dose: 40 mg Documented by: Sennosides (Senna 8.6 Mg Tab) 17.2 mg PO HS MICHEL Stop: 12/11/20 20:59 Last Admin: 11/11/20 20:48 Dose: 17.2 mg Documented by:
[2020-11-12] MEDS: ATORVASTATIN 20 MG TAB PO SCH (20:30)
[2020-11-12] MEDS: DULoxetine HCL 20 MG CAP PO SCH (20:31)
[2020-11-12] MEDS: SENNA 8.6 MG TAB PO SCH (20:31)
[2020-11-13] MEDS: ACETAMINOPHEN 500 MG TAB PO SCH (06:07)
[2020-11-13 06:18] LABS: Basophils # (auto) 0.01 K/uL (0-0.2); Basophils % (auto) 0.1 %; Eosinophils # (auto) 0.02 K/uL (0-0.5); Eosinophils % (auto) 0.2 %; Hematocrit (blood only) 34.6 % (37-47); Hemoglobin 11.7 g/dL (12.0-16.0); Immature Granulocytes # (auto) 0.01 K/uL (0.00-0.02); Immature Granulocytes % (auto) 0.1 %; Lymphocytes # (auto) 1.86 K/uL (1.2-3.4); Mean Corpuscular Hemoglobin 30.2 pg (25-34); Mean Corpuscular Hgb Conc 33.8 g/dL (32-36); Mean Corpuscular Volume 89.4 fL (80-100); Monocytes # (auto) 0.64 K/uL (0.11-0.59); Monocytes % (auto) 7.2 %; Neutrophils % (auto) 71.4 %; Platelet Count 270 K/uL (130-400); RDW Coefficient of Variation 14.7 % (11.5-14.5); RDW Standard Deviation 48.2 fL (36.4-46.3); Red Blood Count 3.87 M/uL (4.2-5.4); White Blood Count 8.84 K/uL (4.8-10.8)
--- NOTE | 2020-11-13 07:14 | Orthopedic Progress Note ---
Date of Service November 13, 2020 Assessment & Plan (1) Primary osteoarthritis of right knee: Postop day 2 status post right total knee arthroplasty. PT/OT protocols. Weightbearing as tolerated. DVT prophylaxis-aspirin p.o. twice daily, SCDs, ANDREW bran pain control as written. Pain control as written. DC planning-[facility] upon discharge. Per case management note patient has bed available. Will plan on d/c today. Admission and Anticipated Discharge Date Admission Date: November 11, 2020 Subjective Patient sitting in bedside chair on my arrival, helped to bed at end of discussion. She is doing well, some pain in knee but is controlled. States she is ambulating well, has not been in hallway however. Denies complaints. No chest pain, sob, dizziness, n/v/d, headache, fever or chills. Review of Systems Constitutional: as per Subjective / HPI Physical Exam Physical Exam: Rudy to right knee is c/d/i, Dressing to hemovac site c/d/i. Toes mobile with good dorsiflexion. No calf tenderness. Distally n/v status and sensation are intact. Constitutional: well developed and well nourished; no acute distress Results & Data ([facility]) Vital Signs (Past 12 Hours) Vital Signs Temp Pulse Pulse Resp BP Pulse Ox 11/13/20 05:32 36.9 C 80 18 137/67 92 11/12/20 22:40 36.9 C 93 H 18 129/66 91 11/12/20 20:30 70 135/71
[2020-11-13] MEDS: oxyCODONE HCL IR 5 MG TAB (IMMEDIATE RELEASE) PO PRN ×2 (07:30→12:53)
[2020-11-13] MEDS: CeleBREX 200 MG CAP PO SCH (08:11)
[2020-11-13] MEDS: DOCUSATE SODIUM 100 MG CAP PO SCH (08:11)
[2020-11-13] MEDS: ASPIRIN 81 MG ECTAB PO SCH (08:11)
[2020-11-13] MEDS: MULTIVITAMIN TAB PO SCH (08:11)
[2020-11-13] MEDS: PANTOprazole 40 MG TAB PO SCH (08:12)
[2020-11-13] MEDS: LABETALOL HCL 100 MG TAB PO SCH (08:15)
--- NOTE | 2020-11-14 10:13 | Discharge Summary ---
Date of Service November 14, 2020 Admission HPI Per Admitting Provider 70 year old female with PMHx significant for HELEN, GERD, HTN, high cholesterol, osteopenia presents with longstanding right knee pain. She has failed conservative measures including Tylenol, NSAIDs, as well as injections. Pain interfering with her ability to carry out daily activity. She would like to proceed with right knee replacement. Patient denies headaches, sweats, fevers, chills, double vision, blurred vision, cough, sore throat, dysphagia, chest pain, sob, wheezing, n/v/d/c, numbness, tingling, fatigue, urinary symptoms, mood disorders. ROS positive for right knee pain and stiffness. Admission Exam Per Admitting Provider Constitutional: well developed and well nourished; no acute distress Eyes: PERRL, conjunctivae normal, anicteric sclerae ENMT: external ear and nose normal, oropharynx normal Neck: trachea midline, no thyromegaly Respiratory: normal respiratory effort, lungs clear to auscultation Cardiovascular: RRR, no murmur, no edema Musculoskeletal: Right knee: Varus alignment, tenderness medial joint line. ROM 0-110 with crepitation. Mild effusion. Stable to valgus and varus stress. Positive Dulce's. Skin: no rashes, warm and dry Neurologic: patellar DTR's 2+ bilat, sensation intact Psychiatric: A+Ox3, euthymic affect Principal Diagnosis Right knee osteoarthritis Discharge Exam Constitutional well developed and well nourished; no acute distress Eyes PERRL, conjunctivae normal, anicteric sclerae ENMT external ear and nose normal, oropharynx normal Neck trachea midline, no thyromegaly Respiratory normal respiratory effort, lungs clear to auscultation Cardiovascular RRR, no murmur, no edema Skin no rashes, warm and dry Neurologic patellar DTR's 2+ bilat, sensation intact Psychiatric A+Ox3, euthymic affect Discharge Data Allergies Allergy/AdvReac Type Severity Reaction Status Date / Time lisinopril Allergy Intermediate DIZZY Verified 11/11/20 05:36 adhesive Allergy Mild RASH WITH Verified 10/08/20 14:03 STERI STRIPS benzoic acid Allergy Mild RASH Verified 11/11/20 05:36 latex Allergy Mild RASH Verified 11/11/20 05:36 losartan Allergy Mild COUGH Verified 11/11/20 05:36 milk Allergy Mild DIARRHEA Verified 11/11/20 05:36 Cipro Allergy Unknown NAUSEA AND Verified 11/09/16 06:49 VOMITING colesevelam Allergy Unknown UNKNOWN Verified 11/11/20 05:36 ciprofloxacin [Cipro] AdvReac Intermediate NAUSEA AND Verified 11/11/20 05:36 VOMITING Iodinated Contrast Media AdvReac Intermediate NAUSEA Verified 11/11/20 05:36 VOMITING metronidazole AdvReac Intermediate NAUSEA Verified 11/11/20 05:36 VOMITING Consultations 11/06/20 14:24 Consult Hospitalist Routine Procedures Performed Operation Date: 11/11/20 07:00 Actual Procedures p Right Total Knee Arthroplasty(Right) - Arturo Marshall MD Ordered Studies 11/11/20 07:23 US - OR guided needle placemen Routine Hospital Course (1) Primary osteoarthritis of right knee: Patient presented for same day admission following right total knee arthroplasty on 11/11/20. She tolerated procedure well. The Patient had an uneventful hospital course. Post-operatively, her activity was progressed and well tolerated. They participated in PT with ambulation distance of 90 and 100 feet. ROM of operative knee reached 90 degrees. Labs remained stable- lowest hemoglobin recorded: 11.6. Dr. Isreal Fagan of medical service was consulted for medical management during admission. Pain controlled on oral medications. Please refer to daily progress notes and PT notes for complete details. After exam on 11/13/20, patient was felt to be stable for discharge to [facility]. Patient will f/u in the office in about 2 weeks for further evaluation including x-rays and incision check, sooner if having any issues or concerns. Postop day 2 status post right total knee arthroplasty. PT/OT protocols. Weightbearing as tolerated. DVT prophylaxis-aspirin p.o. twice daily, SCDs, ANDREW bran pain control as written. Pain control as written. DC planning-[facility] upon discharge. Per case management note patient has bed available. Will plan on d/c today. Lab Results 10/20/20 10/20/20 10/20/20 Range/Units 12:49 12:49 12:49 WBC 11.76 H (4.8-10.8) K/uL RBC 4.57 (4.2-5.4) M/uL Hgb 13.7 (12.0-16.0) g/dL Hct 40.0 (37-47) % MCV 87.5 (80-100) fL MCH 30.0 (25-34) pg MCHC 34.3 (32-36) g/dL RDW Std Deviation 43.9 (36.4-46.3) fL RDW Coeff of Adrianne 13.6 (11.5-14.5) % Plt Count 333 (130-400) K/uL MPV 11.5 H (7.4-10.4) fL Immature Gran % (Auto) 0.2 % Neut % (Auto) 85.7 % Lymph % (Auto) 10.5 % Berrien % (Auto) 3.6 % Eos % (Auto) 0.0 % Baso % (Auto) 0.0 % Neut # (Auto) 10.08 H (1.4-6.5) K/uL Lymph # (Auto) 1.24 (1.2-3.4) K/uL Berrien # (Auto) 0.42 (0.11-0.59) K/uL Eos # (Auto) 0.00 (0-0.5) K/uL Baso # (Auto) 0.00 (0-0.2) K/uL Immature Gran # (Auto) 0.02 (0.00-0.02) K/uL PT 9.7 (9.0-12.0) Seconds INR 1.0 (0.9-1.1) APTT 24.5 (21.0-31.0) Seconds PTT Ratio 0.9 Sodium (136-145) mmol/L Potassium (3.5-5.1) mmol/L Chloride (98-107) mmol/L Carbon Dioxide (21-32) mmol/L Anion Gap (3-11) BUN (7-18) mg/dl Creatinine (0.6-1.2) mg/dl Est Cr Clr Drug Dosing ml/min Est GFR ( Amer) Est GFR (Non-Af Amer) BUN/Creatinine Ratio (10-20) Glucose (70-99) mg/dl Estimat Average Glucose mg/dl Hemoglobin A1c (4.5-5.6) % Calcium (8.5-10.1) mg/dl Albumin (3.4-5.0) gm/dl 25-OH Vitamin D Total (30-100) ng/ml Blood Type A Positive Antibody Screen NEGATIVE 03/02/21 03/02/21 03/24/21 Range/Units 12:49 12:49 05:30 WBC (4.8-10.8) K/uL RBC (4.2-5.4) M/uL Hgb (12.0-16.0) g/dL Hct (37-47) % MCV (80-100) fL MCH (25-34) pg MCHC (32-36) g/dL RDW Std Deviation (36.4-46.3) fL RDW Coeff of Adrianne (11.5-14.5) % Plt Count (130-400) K/uL MPV (7.4-10.4) fL Immature Gran % (Auto) % Neut % (Auto) % Lymph % (Auto) % Berrien % (Auto) % Eos % (Auto) % Baso % (Auto) % Neut # (Auto) (1.4-6.5) K/uL Lymph # (Auto) (1.2-3.4) K/uL Berrien # (Auto) (0.11-0.59) K/uL Eos # (Auto) (0-0.5) K/uL Baso # (Auto) (0-0.2) K/uL Immature Gran # (Auto) (0.00-0.02) K/uL PT (9.0-12.0) Seconds INR (0.9-1.1) APTT (21.0-31.0) Seconds PTT Ratio Sodium 139 (136-145) mmol/L Potassium 3.6 (3.5-5.1) mmol/L Chloride 108 H (98-107) mmol/L Carbon Dioxide 22 (21-32) mmol/L Anion Gap 9.0 (3-11) BUN 22 H (7-18) mg/dl Creatinine 0.98 (0.6-1.2) mg/dl Est Cr Clr Drug Dosing 55.9 ml/min Est GFR ( Amer) 67.7 Est GFR (Non-Af Amer) 58.4 BUN/Creatinine Ratio 22.5 H (10-20) Glucose 115 H (70-99) mg/dl Estimat Average Glucose 120 mg/dl Hemoglobin A1c 5.8 H (4.5-5.6) % Calcium 9.5 (8.5-10.1) mg/dl Albumin 3.8 (3.4-5.0) gm/dl 25-OH Vitamin D Total 25.2 L (30-100) ng/ml Blood Type Antibody Screen 11/12/20 11/12/20 11/13/20 Range/Units 06:32 06:32 05:52 WBC 12.12 H 8.84 (4.8-10.8) K/uL RBC 3.78 L 3.87 L (4.2-5.4) M/uL Hgb 11.6 L 11.7 L (12.0-16.0) g/dL Hct 33.0 L 34.6 L (37-47) % MCV 87.3 89.4 (80-100) fL MCH 30.7 30.2 (25-34) pg MCHC 35.2 33.8 (32-36) g/dL RDW Std Deviation 45.0 48.2 H (36.4-46.3) fL RDW Coeff of Adrianne 14.1 14.7 H (11.5-14.5) % Plt Count 257 270 (130-400) K/uL MPV 11.5 H 11.0 H (7.4-10.4) fL Immature Gran % (Auto) 0.1 % Neut % (Auto) 71.4 % Lymph % (Auto) 21.0 % Berrien % (Auto) 7.2 % Eos % (Auto) 0.2 % Baso % (Auto) 0.1 % Neut # (Auto) 6.30 (1.4-6.5) K/uL Lymph # (Auto) 1.86 (1.2-3.4) K/uL Berrien # (Auto) 0.64 H (0.11-0.59) K/uL Eos # (Auto) 0.02 (0-0.5) K/uL Baso # (Auto) 0.01 (0-0.2) K/uL Immature Gran # (Auto) 0.01 (0.00-0.02) K/uL PT (9.0-12.0) Seconds INR (0.9-1.1) APTT (21.0-31.0) Seconds PTT Ratio Sodium 141 (136-145) mmol/L Potassium 3.9 (3.5-5.1) mmol/L Chloride 114 H (98-107) mmol/L Carbon Dioxide 23 (21-32) mmol/L Anion Gap 4.0 (3-11) BUN 20 H (7-18) mg/dl Creatinine 0.95 (0.6-1.2) mg/dl Est Cr Clr Drug Dosing 57.7 ml/min Est GFR ( Amer) 70.3 Est GFR (Non-Af Amer) 60.7 BUN/Creatinine Ratio 20.5 H (10-20) Glucose 143 H (70-99) mg/dl Estimat Average Glucose mg/dl Hemoglobin A1c (4.5-5.6) % Calcium 8.2 L (8.5-10.1) mg/dl Albumin (3.4-5.0) gm/dl 25-OH Vitamin D Total (30-100) ng/ml Blood Type Antibody Screen Total Time Total Time Spent Total Time Spent (In Minutes): 20 Discharge Plan Discharge Items Patient Disposition: Transfer Inpatient Rehab Fac Reason For Visit: Unilateral Primary Osteoarthritis, Right Knee Discharge Diagnosis: Osteoarthritis right knee Activity: Per Instructions section Weightbearing: Right weightbearing Weightbearing Comment: As tolerated with walker Non-emergency contact: Surgeon Call non-emergency contact if: you have any medication questions, your pain is not controlled, your pain is worsening, your pain is concerning for you, you have a fever, your temperature is above 101, your wound has increased redness and your wound has increased drainage Follow-up/Referrals: Arturo Marshall MD [Surgeon] - (Follow-up in 10 to 14 days from the day of surgery.) Keven Dave MD [Primary Care Provider] - Nini Kang CRNP [Nurse Practitioner] - (Follow-up in 4 to 6 weeks for osteoporosis work-up. Please bring a copy of your DEXA scan report with you.) Diet: Regular Addtl Attending Provider Instructions: ACTIVITY RECOMMENDATIONS: SELF CARE INSTRUCTIONS AFTER TOTAL KNEE REPLACEMENT A. You may need to continue a physical therapy program after discharge from the hospital. There are several options available to you. Your doctor will assist you in selecting the best one for you. 1. An out-patient facility 2 to 3 times a week for therapy or home therapy. 2. Continue working on all exercises taught to you in the hospital. Your goals should be to increase bending of your knee to 90 degrees and beyond and to fully straighten your knee. B. You may progress at your own pace from walking with a walker or crutches to a cane; then to no assistive devices. C. Make walking a part of your daily routine. Be up as much as comfortable with rest periods throughout the day. Rest with leg elevation is very important. Use the ice wrap frequently for the first 3-4 weeks. D. There are no restrictions on activities. You may ride in a car, shop, participate in hospice home care coordinator and all social activities. E. Wear the long elastic stockings (ANDREW hose) 20 hours a day for 2 weeks after surgery. They can be removed several times a day for laundering and for a bath. F. You may shower, no tub baths until cleared by your doctor. SPECIAL CARE INSTRUCTIONS: VERY IMPORTANT TO READ AND REVIEW A. There are a few signs you need to watch for after you are home. Call [facility] if you notice any of the followin. Increased severe knee pain. Some pain is expected especially when you exercise. 2. Increased swelling in your leg or knee; pain or swelling of the calf muscle in either lower leg. 3. Any fluid drainage from the incision. 4. Shortness of breath or chest pain. B. Please call [facility] at if you have any concerns or questions about your operation or recovery. The doctor or his nurse will return your call promptly. C. You must take antibiotics before dental work, bladder, bowel or other surgery. Your doctor will provide you with a permanent care to carry describing this precaution. IMPORTANT: * REMEMBER TO TAKE ASPIRIN, 81 MG, TWICE DAILY FOR 4 WEEKS UNLESS OTHERWISE DIRECTED. THIS IS YOUR BLOOD THINNER. * HIGH RISK PATIENTS MAY BE PRESCRIBED A STRONGER BLOOD THINNER. THIS WILL BE PROVIDED AT DISCHARGE. * CALL IF INCREASED PAIN, REDNESS, DRAINAGE OR FEVER GREATER THAT 101. * WEAR ANDREW HOSE 20 HOURS PER DAY FOR 2 WEEKS. * ROGELIO DRessing- This is a large suction dressing covering your incision. This will help pull any excess drainage from the wound and allow your incision to heal properly. You may shower with this if you can keep the unit outside of the shower. If any bleeding or leakage is noted please call your doctor's office. This will remain on your incision for 7 days and then should be removed. This can be done yourself or by the home nursing staff if applicable. The entire unit is disposable once removed. Once removed, keep incision clean and dry. If redness or drainage is noted, please call your surgeon. . FOLLOW UP VISIT: If appointment is not already scheduled: Please call [facility] to make a follow-up appointment for 2 weeks after your surgery at . Stand-Alone Forms: My [facility] Skilled Items Patient informed of condition?: Yes DNR: No Discharge Level of Care: Acute rehab Communicable Disease: No Discharge Prognosis: Stable Lines: None Urinary Catheter: No Medications and DC Order Prescriptions: New celecoxib [Celebrex] 200 mg Capsule 200 mg PO BID 14 Days Qty: 28 RF: 0 sennosides [Senokot] 8.6 mg Tablet 17.2 mg PO HS 5 Days Qty: 10 RF: 0 aspirin 81 mg Tablet,Delayed Release (Dr/Ec) 81 mg PO BID 30 Days Qty: 60 RF: 0 acetaminophen 500 mg Tablet 1,000 mg PO Q8 14 Days Qty: 84 RF: 0 docusate sodium 100 mg Capsule 100 mg PO BID 5 Days Qty: 10 RF: 0 oxycodone 5 mg Tablet 5 - 10 mg PO Q4H PRN (Reason: pain) 5 Days Qty: 36 RF: 0 Continued atorvastatin 20 mg Tablet 20 mg PO HS RF: 0 amlodipine 5 mg Tablet 5 mg PO QAM RF: 0 pantoprazole 40 mg Tablet,Delayed Release (Dr/Ec) 40 mg PO BID RF: 0 labetalol 100 mg Tablet 100 mg PO BID RF: 0 multivitamin Tablet,Chewable 1 tab PO QAM RF: 0 duloxetine 20 mg Capsule,Delayed Release(Dr/Ec) 20 mg PO QPM RF: 0 Fiber Gummies 2 gram Tablet,Chewable 2 g PO DAILY PRN (Reason: NEEDED..) RF: 0 Discontinued aspirin [Adult Aspirin Regimen] 81 mg Tablet,Delayed Release (Dr/Ec) 81 mg PO QAM RF: 0 Discharge Orders: Discharge Order (Routine); Ordered 11/13/20 Ordered By: Lencho Lyons/Other Patient Handouts: DVT Post Op Prevention Admission Data Admit Date/Time: 11/11/20 09:27 Attending Provider: Arturo Marshall Admit Provider: Arturo Marshall Primary Care Provider: Keven Dave Other Providers: Isreal Fagan ; [facility] Other Interventions: Discharge Summary Assessment (RN) Last Done: 11/13/20 12:41
== END 2020-11-13 14:38 ==
LOC: ASU 05:14 → 3E 05:14